=== PATIENT | female | born 1980 | race African-American/Black ===

== ENCOUNTER 2018-08-09 11:58 | Inpatient (IN) | payer OTHER ==
[~2018-08-09] VITALS: Ht 165.1 cm; Wt 81.6 kg
[2018-08-09 12:12] VITALS: BP 114/63
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
[2018-08-09] MEDS ORDERED: Solu-MEDROL 125mg Inj IVP ONE (12:30)
[2018-08-09] MEDS ORDERED: Isovue-300 100ml vial INJ PRN (12:30)
--- NOTE | 2018-08-09 12:40 | NUR ---
ED Nurse Note: Dr Garcia spoke to pt's nurse and found out there was misunderstanding. Pt's pcp told her she needs to be checked up at ER for mouth and throat sores. Labs were drown and pt will provide urine sample.
[2018-08-09 12:49] LABS: BASOPHILS % (AUTO) 0.3 % (0.0-2.0); EOSINOPHILS % (AUTO) 0.7 % (0.0-3.0); HEMATOCRIT 42.3 % (37.0-47.0); LYMPHOCYTES % (AUTO) 11.9 % (20.0-45.0); MEAN CORPUSCULAR VOLUME 85 FL (80-99); MONOCYTES % (AUTO) 5.9 % (1.0-10.0); NEUTROPHILS % (AUTO) 81.2 % (45.0-75.0); PLATELET COUNT 260 K/UL (150-450); RED BLOOD COUNT 4.95 M/UL (4.20-5.40); RED CELL DISTRIBUTION WIDTH 12.8 % (11.6-14.8)
[2018-08-09 13:01] LABS: ANION GAP 13 mmol/L (5-15); BLOOD UREA NITROGEN 16 mg/dL (7-18); CALCIUM 9.8 MG/DL (8.5-10.1); CARBON DIOXIDE 21 MMOL/L (21-32); CHLORIDE 99 MMOL/L (98-107); CREATININE 1.3 MG/DL (0.55-1.30); POTASSIUM 3.8 MMOL/L (3.5-5.1); SODIUM 133 MMOL/L (136-145)
[2018-08-09 13:08] LABS: APPEARANCE,URINE TURBID; BILIRUBIN, URINE 2+ (NEGATIVE); GLUCOSE, URINE (UA) NEGATIVE (NEGATIVE); KETONES,URINE 3+ (NEGATIVE); LEUKOCYTE ESTERASE ,URINE 3+ (NEGATIVE); NITRITE,URINE POSITIVE (NEGATIVE); PH,URINE 6.5 (4.5-8.0); PROTEIN,URINE 3+ (NEGATIVE); UROBILINOGEN,URINE 12 MG/DL (0.0-1.0)
[2018-08-09 13:22] LABS: COLOR,URINE YELLOW
[2018-08-09 13:26] LABS: ALANINE AMINOTRANSFERASE 2425 U/L (12-78); ALBUMIN/GLOBULIN RATIO 0.4 (1.0-2.7); ALKALINE PHOSPHATASE 158 U/L (46-116); BILIRUBIN,TOTAL 1.2 MG/DL (0.2-1.0)
[2018-08-09 13:30] VITALS: BP 124/70
[2018-08-09] MEDS ORDERED: Ketorolac 30mg Inj IV ONE (13:30)
[2018-08-09 13:36] LABS: ASPARTATE AMINO TRANSFERASE 2565 U/L (15-37); BILIRUBIN,DIRECT 0.7 MG/DL (0.0-0.3)
--- NOTE | 2018-08-09 14:30 | Emergency Room Report ---
History of Present Illness General Chief Complaint: Sore Throat Source: Patient (Ruben Garcia MD) Present Illness HPI 38-year-old female presents ED for evaluation. Patient referred by PMD. 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 Heart rate in triage 155. States that she's been having throat pain for the last 5 days. Unable to tolerate by mouth. Feeling weak. Denies fevers or chills. Denies any nausea or vomiting. Denies any abdominal pain. Denies any chest pain. No other aggravating relieving factors. Denies any other associated symptoms (Ruben Garcia MD) Allergies: Coded Allergies: CODEINE (Verified Allergy, Unknown, 08/09/18) Patient History Past Medical History: none Past Surgical History: none Pertinent Family History: none Social History: Denies: smoking, alcohol use, drug use Last Menstrual Period: hysterectomy 04/11 Now: No Immunizations: UTD Reviewed Nursing Documentation: PMH: Agreed; PSxH: Agreed (Ruben Garcia MD) Nursing Documentation-PMH Past Medical History: No Stated History (Ruben Garcia MD) Review of Systems All Other Systems: negative except mentioned in HPI (Rubne Garcia MD) Physical Exam Vital Signs Date Time Temp Pulse Resp B/P (MAP) Pulse Ox O2 Delivery O2 Flow Rate FiO2 08/09/18 12:08 98.2 155 22 91/62 98 Room Air Sp02 EP Interpretation: reviewed, normal General Appearance: no apparent distress, alert, GCS 15, non-toxic Head: normocephalic, atraumatic Eyes: bilateral eye normal inspection, bilateral eye PERRL ENT: hearing grossly normal, no angioedema, normal voice, TMs + canals normal, uvula midline, pharyngeal erythema, tonsillar exudate, other - swelling to hard palate Neck: full range of motion, supple, no meningismus, supple/symm/no masses Respiratory: chest non-tender, lungs clear, normal breath sounds, speaking full sentences Cardiovascular #1: regular rate, rhythm, no edema Cardiovascular #2: 2+ carotid (R), 2+ carotid (L), 2+ radial (R), 2+ radial (L) , 2+ dorsalis pedis (R), 2+ dorsalis pedis (L) Gastrointestinal: normal bowel sounds, non tender, soft, non-distended, no guarding, no rebound Rectal: deferred Genitourinary: normal inspection, no CVA tenderness Musculoskeletal: back normal, gait/station normal, normal range of motion, non- tender Neurologic: alert, oriented x3, responsive, motor strength/tone normal, sensory intact, speech normal Psychiatric: judgement/insight normal, memory normal, mood/affect normal, no suicidal/homicidal ideation Reflexes: 3+ bicep (R), 3+ bicep (L), 3+ tricep (R), 3+ tricep (L), 3+ knee (R) , 3+ knee (L) Skin: normal color, no rash, warm/dry, well hydrated Lymphatic: no adenopathy (Ruben Garcia MD) Medical Decision Making Diagnostic Impression: Primary Impression: UTI (urinary tract infection) Additional Impressions: Elevated LFTs Pharyngitis, acute Labs Test 08/09/18 12:30 08/09/18 13:00 White Blood Count 6.0 K/UL (4.8-10.8) Red Blood Count 4.95 M/UL (4.20-5.40) Hemoglobin 14.0 G/DL (12.0-16.0) Hematocrit 42.3 % (37.0-47.0) Mean Corpuscular Volume 85 FL (80-99) Mean Corpuscular Hemoglobin 28.2 PG (27.0-31.0) Mean Corpuscular Hemoglobin Concent 33.0 G/DL (32.0-36.0) Red Cell Distribution Width 12.8 % (11.6-14.8) Platelet Count 260 K/UL (150-450) Mean Platelet Volume 5.7 FL (6.5-10.1) Neutrophils (%) (Auto) 81.2 % (45.0-75.0) Lymphocytes (%) (Auto) 11.9 % (20.0-45.0) Monocytes (%) (Auto) 5.9 % (1.0-10.0) Eosinophils (%) (Auto) 0.7 % (0.0-3.0) Basophils (%) (Auto) 0.3 % (0.0-2.0) Sodium Level 133 MMOL/L (136-145) Potassium Level 3.8 MMOL/L (3.5-5.1) Chloride Level 99 MMOL/L (98-107) Carbon Dioxide Level 21 MMOL/L (21-32) Anion Gap 13 mmol/L (5-15) Blood Urea Nitrogen 16 mg/dL (7-18) Creatinine 1.3 MG/DL (0.55-1.30) Estimat Glomerular Filtration Rate 55.9 mL/min (>60) Glucose Level 91 MG/DL (74-106) Calcium Level 9.8 MG/DL (8.5-10.1) Total Bilirubin 1.2 MG/DL (0.2-1.0) Direct Bilirubin 0.7 MG/DL (0.0-0.3) Aspartate Amino Transf (AST/SGOT) 2565 U/L (15-37) Alanine Aminotransferase (ALT/SGPT) 2425 U/L (12-78) Alkaline Phosphatase 158 U/L (46-116) Total Protein 11.0 G/DL (6.4-8.2) Albumin 3.0 G/DL (3.4-5.0) Globulin 8.0 g/dL Albumin/Globulin Ratio 0.4 (1.0-2.7) Lipase 92 U/L (73-393) Human Chorionic Gonadotropin, Qual Negative (NEGATIVE) Urine Color Yellow Urine Appearance Turbid Urine pH 6.5 (4.5-8.0) Urine Specific [place] 1.015 (1.005-1.035) Urine Protein 3+ (NEGATIVE) Urine Glucose (UA) Negative (NEGATIVE) Urine Ketones 3+ (NEGATIVE) Urine Blood 2+ (NEGATIVE) Urine Nitrite Positive (NEGATIVE) Urine Bilirubin 2+ (NEGATIVE) Urine Ictotest Positive (NEGATIVE) Urine Urobilinogen 12 MG/DL (0.0-1.0) Urine Leukocyte Esterase 3+ (NEGATIVE) Urine RBC 5-10 /HPF (0 - 2) Urine WBC 10-15 /HPF (0 - 2) Urine Squamous Epithelial Cells Many /LPF (NONE/OCC) Urine Bacteria Many /HPF (NONE) Urine Hyaline Casts 0-2 /LPF (NONE) (Ruben Garcia MD) ER Course Please see above note. Discussed with Dr. Atwood who accepts the patient. Decision to admit here by insurance. Admit Dr. De La Cruz. (Morales Castellanos MD) EKG Diagnostic Results Rate: tachycardiac Rhythm: NSR ST Segments: no acute changes ASA given to the pt in ED: No (Ruben Garcia MD) Rhythm Strip Diag. Results EP Interpretation: yes Rhythm: NSR, no PVC's, no ectopy (Ruben Garcia MD) Chest X-Ray Diagnostic Results Chest X-Ray Diagnostic Results : Chest X-Ray Ordered: Yes # of Views/Limited/Complete: 1 View Indication: Other EP Interpretation: Yes Interpretation: no consolidation, no effusion, no pneumothorax, no acute cardiopulmonary disease Impression: No acute disease Electronically Signed by: Electronically signed by Ruben Garcia MD (Ruben Garcia MD) CT/MRI/US Diagnostic Results CT/MRI/US Diagnostic Results #1: Imaging Test Ordered: CT neck CT/MRI/US Diagnostic Results #2: Imaging Test Ordered: CT A/P (Ruben Garcia MD) Last Vital Signs Date Time Temp Pulse Resp B/P (MAP) Pulse Ox O2 Delivery O2 Flow Rate FiO2 08/09/18 12:12 98.2 120 22 114/63 98 Room Air Status: improved (Ruben Garcia MD) Status: improved (Morales Castellanos MD) Disposition: ADMITTED INPATIENT Condition: Serious Scripts No Active Prescriptions or Reported Meds Referrals: NON PHYSICIAN (PCP) Ruben Garcia MD Aug 09, 2018 14:30 Morales Castellanos MD Aug 09, 2018 15:58
--- NOTE | 2018-08-09 15:00 | Diagnostic Imaging Report ---
Indication: Abdominal pain Technique: Continuous helical transaxial imaging of the abdomen and pelvis was obtained from the lung bases to the pubic symphysis during intravenous contrast administration. Coronal 2-D reformats were also obtained. Study obtained in a Siemens sensation [address] Automatic Exposure Control was utilized. Total Dose length Product (DLP): 1559.[address] Dose Index Volume (CTDIvol): 19.51,15.23 mGy Comparison: None Findings: The lung bases are clear. The liver and spleen are enlarged. The liver measures 23 cm. The spleen measures approximately 14 cm. Gallbladder is contracted but unremarkable otherwise. The pancreas, kidneys and the adrenal glands are unremarkable. There is breathing motion which limits evaluation to some extent. There is no bowel obstruction identified. There is a small amount of free fluid within the pelvis. Uterus is retroverted. Query possibility of previous partial resection of the uterus given its diminutive size such as a supra cervical hysterectomy or partial myomectomy. Correlate clinically. IMPRESSION: Hepatosplenomegaly. Trace free fluid within the pelvis. Small uterus. Query possibility of previous partial uterine resection or supracervical hysterectomy. Correlate clinically The CT scanner at [facility] is accredited by the [employer] and the scans are performed using dose optimization techniques as appropriate to a performed exam including Automatic Exposure control.
--- NOTE | 2018-08-09 15:11 | Diagnostic Imaging Report ---
Indication: Odynophagia 5 days. Abdominal pain. Technique: Continuous helical imaging of the neck was obtained transaxially from the skull base to the upper thoracic spine during intravenous administration of nonionic contrast. 2-D coronal and sagittal reformatted images were obtained. Total Dose length Product (DLP): [address] Dose Index Volume (CTDIvol): 0.25, 0.15, 8.11, 48.67, 19.51, 15.23 mGy Comparison: None Findings: There is mild, generalized pharyngeal mucosal thickening present within the oral pharynx and nasopharynx especially the posterior wall of the nasopharynx on the left side more than the right. The findings could be on the basis of an upper respiratory infection. There is no abscess identified. The epiglottis is normal. The aryepiglottic folds are unremarkable. The larynx appears normal. The subglottic airway appear symmetric and clear. There are nodes within the neck bilaterally measuring in the upwards of 1.5 cm. These are likely inflammatory in nature. Cervical spine is unremarkable. The major vessels in the neck enhance normally. The submandibular/sublingual regions, the parotid glands, skull base, thyroid gland, appear normal. The paranasal sinuses are moderately opacified consistent with sinusitis. IMPRESSION: Pharyngeal mucosal thickening involving the nasopharynx and oropharynx particularly on the left side. Findings are probably inflammatory in nature and may be related to a upper respiratory infection. Please correlate clinically. Nonspecific nodes present within the neck bilaterally. Favor inflammatory/infectious etiology. Sinusitis Follow-up and clinical correlation recommended. The CT scanner at [facility] is accredited by the [employer] and the scans are performed using dose optimization techniques as appropriate to a performed exam including Automatic Exposure control.
--- NOTE | 2018-08-09 15:20 | Diagnostic Imaging Report ---
Indication: Chest pain Comparison: None A single view chest radiograph was obtained. Findings: Cardiomediastinal appearance is within normal limits for age. The lungs are clear. Pulmonary vascularity is appropriate. The diaphragmatic contour is smooth and costophrenic angles are sharp. No pleural effusions are identified. The bones are unremarkable. Impression: No acute findings
[2018-08-09] MEDS ORDERED: cefTRIAXone 1 GM in NS 55 ML IVPB ONE (15:30)
--- NOTE | 2018-08-09 16:47 | NUR ---
ED Nurse Note: Report given to KATY Sears in 3E based on SBAR information. Pt stable and aware of transfer. Room is ready. Pt will be transferred.
--- NOTE | 2018-08-09 16:49 | NUR ---
ED Nurse Note: waiting for Dr Castellanos to talk to admitting doctor Caprice.
[2018-08-09 17:30] VITALS: BP 121/79
--- NOTE | 2018-08-09 17:30 | NUR ---
ED Nurse Note: Pt was cleared to be transferred by ERMD. Pt stable, finished IV fluid and IV ATB prior to transfer. [place] list was filled out by Kevin Weir RN and was reported to KATY Sears in 3E.
--- NOTE | 2018-08-09 18:19 | NUR ---
NURSE NOTES: Patient received from the ED in stable condition. Alert and oriented with unlabored breathing. IV site patent and intact on left AC. Belongings reviewed and confirmed with the patient. Patient oriented to her new room, call light placed by bedside. Will continue to monitor.
[2018-08-09] MEDS ORDERED: Ketorolac 30mg Inj IV SCH (19:00)
[2018-08-09] MEDS ORDERED: Dexamethasone 4mg/ml vial IVP ONE (19:00)
--- NOTE | 2018-08-09 19:37 | NUR ---
HAND-OFF: Report given to Gregorio BURNS.
--- NOTE | 2018-08-09 19:37 | Infectious Diseases Prog Note ---
Assessment/Plan Problems: (1) Pharyngitis, acute Assessment & Plan: rule out infectious etiology , will order influenza screening, CMV , monospot , mycoplasma and chlamydia , and will start unasyn empiric coverage . will place in droplets isolation (2) UTI (urinary tract infection) Assessment & Plan: will start unasyn pending urine culture (3) Hepatitis Assessment & Plan: rule out acute hepatitis VS other infectious etiology. monitor LFT , recommend GI eval (4) Oral thrush Assessment & Plan: will start nystatin and order HIV test Subjective Allergies: Coded Allergies: CODEINE (Verified Allergy, Unknown, 08/09/18) Objective Vital Signs Last 24 Hour Vital Signs Date Time Temp Pulse Resp B/P (MAP) Pulse Ox O2 Delivery O2 Flow Rate FiO2 08/09/18 17:50 Room Air 08/09/18 17:30 98.5 94 19 121/79 99 Room Air 08/09/18 17:30 98.5 94 19 121/79 99 Room Air 08/09/18 13:30 98.1 97 21 124/70 98 Room Air 08/09/18 12:12 98.2 120 22 114/63 98 Room Air 08/09/18 12:08 98.2 155 22 91/62 98 Room Air Height (Feet): 5 Height (Inches): 7.00 Weight (Pounds): 180 Laboratory Tests Test 08/09/18 12:30 08/09/18 13:00 White Blood Count 6.0 K/UL (4.8-10.8) Red Blood Count 4.95 M/UL (4.20-5.40) Hemoglobin 14.0 G/DL (12.0-16.0) Hematocrit 42.3 % (37.0-47.0) Mean Corpuscular Volume 85 FL (80-99) Mean Corpuscular Hemoglobin 28.2 PG (27.0-31.0) Mean Corpuscular Hemoglobin Concent 33.0 G/DL (32.0-36.0) Red Cell Distribution Width 12.8 % (11.6-14.8) Platelet Count 260 K/UL (150-450) Mean Platelet Volume 5.7 FL (6.5-10.1) L Neutrophils (%) (Auto) 81.2 % (45.0-75.0) H Lymphocytes (%) (Auto) 11.9 % (20.0-45.0) L Monocytes (%) (Auto) 5.9 % (1.0-10.0) Eosinophils (%) (Auto) 0.7 % (0.0-3.0) Basophils (%) (Auto) 0.3 % (0.0-2.0) Sodium Level 133 MMOL/L (136-145) L Potassium Level 3.8 MMOL/L (3.5-5.1) Chloride Level 99 MMOL/L (98-107) Carbon Dioxide Level 21 MMOL/L (21-32) Anion Gap 13 mmol/L (5-15) Blood Urea Nitrogen 16 mg/dL (7-18) Creatinine 1.3 MG/DL (0.55-1.30) Estimat Glomerular Filtration Rate 55.9 mL/min (>60) Glucose Level 91 MG/DL (74-106) Calcium Level 9.8 MG/DL (8.5-10.1) Total Bilirubin 1.2 MG/DL (0.2-1.0) H Direct Bilirubin 0.7 MG/DL (0.0-0.3) H Aspartate Amino Transf (AST/SGOT) 2565 U/L (15-37) H Alanine Aminotransferase (ALT/SGPT) 2425 U/L (12-78) H Alkaline Phosphatase 158 U/L (46-116) H Total Protein 11.0 G/DL (6.4-8.2) H Albumin 3.0 G/DL (3.4-5.0) L Globulin 8.0 g/dL Albumin/Globulin Ratio 0.4 (1.0-2.7) L Lipase 92 U/L (73-393) Human Chorionic Gonadotropin, Qual Negative (NEGATIVE) Urine Color Yellow Urine Appearance Turbid Urine pH 6.5 (4.5-8.0) Urine Specific [place] 1.015 (1.005-1.035) Urine Protein 3+ (NEGATIVE) H Urine Glucose (UA) Negative (NEGATIVE) Urine Ketones 3+ (NEGATIVE) H Urine Blood 2+ (NEGATIVE) H Urine Nitrite Positive (NEGATIVE) H Urine Bilirubin 2+ (NEGATIVE) H Urine Ictotest Positive (NEGATIVE) Urine Urobilinogen 12 MG/DL (0.0-1.0) H Urine Leukocyte Esterase 3+ (NEGATIVE) H Urine RBC 5-10 /HPF (0 - 2) H Urine WBC 10-15 /HPF (0 - 2) H Urine Squamous Epithelial Cells Many /LPF (NONE/OCC) H Urine Bacteria Many /HPF (NONE) H Urine Hyaline Casts 0-2 /LPF (NONE) H Current Medications Medications (Trade) Dose Ordered Sig/Tanvi Route PRN Reason Start Time Stop Time Status Last Admin Dose Admin Acetaminophen (Tylenol) 650 mg Q4H PRN ORAL Mild Pain/Temp > 100.5 08/09/18 19:00 09/08/18 18:59 Ampicillin Sodium/ Sulbactam Sodium 3 gm/Sodium Chloride 110 ml @ 220 mls/hr Q6H IVPB 08/09/18 20:00 08/16/18 19:59 Dexamethasone Sodium Phosphate (Decadron 4mg/ml vial) 2 mg ONCE ONCE IM 08/10/18 09:00 08/10/18 09:01 Iopamidol (Isovue-300 100ml) 100 ml NOW PRN INJ Radiology Procedure 08/09/18 12:30 08/11/18 12:20 Ketorolac Tromethamine (Toradol 30mg) 30 mg Q6H IV 08/09/18 19:00 08/14/18 18:59 UNV Ketorolac Tromethamine (Toradol 30mg) 30 mg Q6H PRN IV Severe Pain (Pain Scale 7-10) 08/09/18 19:15 08/14/18 19:14 UNV Nystatin (Nystatin) 5 ml THREE TIMES A DAY ORAL 08/10/18 09:00 08/17/18 08:59 UNV Pantoprazole (Protonix) 40 mg DAILY ORAL 08/10/18 09:00 09/09/18 08:59 Carlitos Suarez M.D. Aug 09, 2018 19:37
--- NOTE | 2018-08-09 19:40 | NUR ---
NURSE NOTES: Received report from Renu BURNS. Pt A&O x4, laying in bed. No signs of pain or distress. IV site LAC dry & intact. Call light in reach, bed in lowest position, side rails up x2. Will continue to monitor.
[2018-08-09 20:00] VITALS: BP 114/72
[2018-08-09] MEDS: Ampicillin/Sulbactam Sod 3 GM in NS 110 ML IVPB SCH (20:41)
--- NOTE | 2018-08-09 21:00 | Consultation ---
DATE OF CONSULTATION: 08/09/2018 INFECTIOUS DISEASE CONSULTATION CONSULTING PHYSICIAN: Carlitos Suarez M.D. REQUESTING PHYSICIAN: Ascencion De La Cruz M.D. REASON FOR CONSULTATION: Acute pharyngitis, hepatitis, and UTI. Recommendation for antibiotics treatment and further management. HISTORY OF PRESENT ILLNESS: The patient is a 38-year-old female with no significant past medical history, who presented to the emergency room after she was sent by her primary physician for concern of cancer in her mouth. The patient had sore throat for almost 5 days. She also had heart rate in the range of 155. The patient has been feeling sick and weak, unable to tolerate anything by her mouth with dysphagia. Denied any other associated symptoms such as nausea, vomiting, abdominal pain, diarrhea, or chest pain. She denied any recent travel or sick contact. She never had symptoms like this before. The patient had CT scan of neck which showed pharyngeal mucosal thickening involving the nasopharynx and oropharynx, particularly on the left side, concerning for infectious etiology, so Infectious Disease consultation was requested for antibiotics treatment and further management. REVIEW OF SYSTEMS: A 14-point of system reviewed were all negative apart from the one I mentioned above in my H and P. PAST MEDICAL HISTORY: Negative. PAST SURGICAL HISTORY: Negative. FAMILY HISTORY: Not contributory. SOCIAL HISTORY: The patient has been smoking 1 packet per day since age of 15. She uses alcohol occasionally and drugs sometimes. She is unemployed and lives with boyfriend at this moment. ALLERGIES: She is allergic to codeine. MEDICATIONS: She received ceftriaxone, clindamycin, and methylprednisolone in the emergency room. For the rest of her medications, please refer to MAR. PHYSICAL EXAMINATION: VITAL SIGNS: Temperature 98.5, pulse 94, respiration 19, blood pressure 121/79, saturation 99% on room air. GENERAL: A young female, up in bed, awake, alert, oriented x3, not in acute distress, coughing. HEENT: Normocephalic and atraumatic. Pupils reactive to light equally. Pale sclerae. Moist oral mucosa with thrush covering her tongue and 2 ulcerated lesions on her tongue with small growth arising from both mildly enlarged tonsils on both sides. Unable to assess tonsils well. NECK: Supple with submandibular lymphadenopathy. CARDIOVASCULAR: Regular rate and rhythm. No murmur or gallop. LUNGS: Clear bilaterally. No wheezing. No rhonchi. Normal breathing effort. ABDOMEN: Soft, nontender, and nondistended. Normal bowel sounds. No hepatosplenomegaly or ascites. EXTREMITIES: No edema or cyanosis. LABORATORY DATA: Laboratories showed white count of 6000, hemoglobin of 14, platelet count of 260,000. BUN of 16, creatinine of 1.3. AST of 2565, ALT of 2425, with alkaline phosphatase of 158. IMAGIN. Neck CT showed pharyngeal mucosal thickening involving the nasopharynx and oropharynx, particularly on the left side, concerning for infectious process. 2. Chest x-ray showed no acute finding. 3. CT scan of abdomen and pelvis with contrast showed hepatosplenomegaly, trace free fluid within the pelvis, small uterus, previous partial uterine resection. ASSESSMENT AND RECOMMENDATION: 1. Acute pharyngitis, rule out infectious etiology. We will order influenza screening, CMV, monospot, Mycoplasma, and Chlamydia, and we will start Unasyn empiric coverage. We will place the patient on droplet isolation for now. 2. UTI. We will start Unasyn pending urine culture. 3. Hepatitis, rule out infectious etiology such as hepatitis A, B, or C or other infectious etiology which I mentioned earlier such as CMV or Monospot. We will screen for viral hepatitis . Continue to monitor liver function tests. Recommend GI evaluation. 4. Oral thrush concerning for HIV. We will order HIV test. I will start the patient on nystatin orally. 5. Tongue lesions, rule out malignant process. Recommend biopsy and followup with oral surgical instruments inspector. Thank you for the consult. ID will continue to follow. Carlitos Suarez M.D. DR: Anna JOB#: [id number] CC: AN
[2018-08-09] MEDS: Ketorolac 30mg Inj IV PRN (21:05)
[2018-08-09 21:16] LABS: HEMATOCRIT 31.5 % (37.0-47.0); HEMOGLOBIN 10.6 G/DL (12.0-16.0); MEAN CORPUSCULAR VOLUME 86 FL (80-99); PLATELET COUNT 213 K/UL (150-450); RED BLOOD COUNT 3.66 M/UL (4.20-5.40); RED CELL DISTRIBUTION WIDTH 12.6 % (11.6-14.8); WHITE BLOOD COUNT 7.7 K/UL (4.8-10.8)
--- NOTE | 2018-08-09 21:30 | NUR ---
NURSE NOTES: Pt transferred to d/t droplet isolation. Report given to Kaye BURNS. Belongings list signed. Pt in stable condition.
--- NOTE | 2018-08-09 21:40 | NUR ---
NURSE NOTES: Patient in bed, AOX4, IV in place. No s/s distress noted. Reviewed patient belongings within 3e nurse. Bed in lowest position, call light within reach. Will continue to monitor.
[2018-08-10 00:28] VITALS: BP 113/76
[2018-08-10] MEDS: Ampicillin/Sulbactam Sod 3 GM in NS 110 ML IVPB SCH ×4 (01:36→20:40)
[2018-08-10 04:00] VITALS: BP 119/75
--- NOTE | 2018-08-10 06:02 | NUR ---
NURSE NOTES: Patient in bed, asleep, no distress.
[2018-08-10] MEDS: Ketorolac 30mg Inj IV PRN ×3 (06:33→18:47)
--- NOTE | 2018-08-10 07:30 | NUR ---
HAND-OFF: Report given to YAN SYLVESTER RN.
--- NOTE | 2018-08-10 07:37 | NUR ---
NURSE NOTES: patient is awake and alert ,sitting up in bed and eating breakfast,patient state no complaint at this time.Call light within reach.
[2018-08-10 08:15] LABS: BASOPHILS % (AUTO) 0.3 % (0.0-2.0); HEMATOCRIT 32.7 % (37.0-47.0); HEMOGLOBIN 10.9 G/DL (12.0-16.0); LYMPHOCYTES % (AUTO) 8.2 % (20.0-45.0); MEAN CORPUSCULAR VOLUME 86 FL (80-99); MONOCYTES % (AUTO) 6.9 % (1.0-10.0); NEUTROPHILS % (AUTO) 84.6 % (45.0-75.0); PLATELET COUNT 223 K/UL (150-450); RED BLOOD COUNT 3.78 M/UL (4.20-5.40); WHITE BLOOD COUNT 7.9 K/UL (4.8-10.8)
[2018-08-10] MEDS: Nystatin Susp 500,000 units/5ml ORAL SCH ×3 (08:19→18:37)
[2018-08-10 08:46] VITALS: BP 116/74
[2018-08-10 08:46] LABS: ALANINE AMINOTRANSFERASE 3063 U/L (12-78); ALBUMIN 2.3 G/DL (3.4-5.0); ALBUMIN/GLOBULIN RATIO 0.3 (1.0-2.7); ALKALINE PHOSPHATASE 128 U/L (46-116); ANION GAP 9 mmol/L (5-15); ASPARTATE AMINO TRANSFERASE 2147 U/L (15-37); BILIRUBIN,TOTAL 0.7 MG/DL (0.2-1.0); BLOOD UREA NITROGEN 11 mg/dL (7-18); CALCIUM 8.7 MG/DL (8.5-10.1); CARBON DIOXIDE 23 MMOL/L (21-32); CHLORIDE 105 MMOL/L (98-107); CREATININE 0.9 MG/DL (0.55-1.30); POTASSIUM 4.4 MMOL/L (3.5-5.1); SODIUM 137 MMOL/L (136-145)
[2018-08-10] MEDS ORDERED: Nystatin Susp 500,000 units/5ml ORAL SCH (09:00)
[2018-08-10] MEDS ORDERED: Dexamethasone 4mg/ml vial IM ONE (09:00)
--- NOTE | 2018-08-10 10:25 | NUR ---
ST NOTE: BEDSIDE SWALLOW EVAL RECEIVED BEDSIDE SWALLOW EVAL ORDER CHART REVIEWED PRIOR THE EVALUATION PT IS A 38-YEAR-OLD FEMALE WHO WAS ADMITTED DUE TO UTI AND PHARYNGITIS. DYSPHAGIA RISK FACTORS: PER PT, PAINFUL SWALLOWING(ODYNOPHAGIA) FOR THE LAST 5 DAYS, ORAL THRUST, QUESTIONABLE TONGUE LESIONS, PHARYNGITIS, ACUTE, H/O SMOKING 1 PACK PER DAY LAST 14 YRS. PER CXR: NO ACUTE PROCESS PLOF: PT RESIDES AT HOME WITH BOYFRIEND. PT IS FULL CODE. CURRENT STATUS: PT SEEN AT BEDSIDE IN AM. ALERT, COOPERATIVE, FOLLOWS DIRECTIONS, VERBAL, ORIENT X 4. PER PT, WHEN SWALLOW THE COLD WATER AND PUDDING, HER THROAT HURT, AND SOME MOUTH AND TONGUE LESIONS WERE NOTED BUT IT SEEMS REDUCED AFTER RECEIVING ANTIBIOTIC. GIVEN PO TRIALS: THIN(CUP-SELF) AND PUDDING(TSP), PT REFUSED MASTICATED SOLID AT THIS TIME(VERY PAINFUL TO SWALLOW). INITIAL IMPRESSION: ORAL THRUST WAS NOTED. GROSSLY FUNCTION LABIAL AND LINGUAL MOVEMENT AND STRENGTH GOOD ORAL TRANSIT TIME AND OROPHARYNGEAL TRANSIT TIME, GOOD LARYNGEAL ELEVATION, NO OVERT S/S OF ASPIRATION. OVERALL, PT'S SWALLOWING IS FUNCTIONAL. HOWEVER, PT REPORTED THAT SHE STILL HAS THE PAIN DURING SWALLOWING. RECOMMENDATIONS: 1. CONTINUE CURRENT DIET(FULL LIQUID) 2. UPGRADE DIET TOLERATED. 3. GENERAL ASPIRATION PRECAUTIONS 4. SKILLED ST SERVICE TO FOLLOW UP FOR 1-2XWK D/W PT AND RNYAN.
[2018-08-10 12:00] VITALS: BP 128/77
--- NOTE | 2018-08-10 13:26 | GI Initial Consult Note ---
History of Present Illness General Date patient seen: Aug 10, 2018 Time patient seen: 13:20 Reason for Hospitalization: Sore Throat Referring physician: CHARLES HORVATH Reason for Consultation: Odynophagia / dysphagia Present Illness HPI 38-year-old female presents ED for evaluation. Patient referred by PMD. 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 Heart rate in triage 155. States that she's been having throat pain for the last 5 days. Unable to tolerate by mouth. Feeling weak. Denies fevers or chills. Denies any nausea or vomiting. Denies any abdominal pain. Denies any chest pain. No other aggravating relieving factors. Denies any other associated symptoms GI consulted for odynophagia versus dysphagia. Patient seen, awake alert and oriented x4 in no apparent distress, ambulatory, no active signs and symptoms of nausea vomiting. According to the patient, she has painful swallowing even on pure liquid diet. Patient was assessed by speech therapist with no noted dysphagia. Oral thrush noted. No history of endoscopic or colonoscopy. Labs reviewed, patient presents with normocytic anemia, severe transaminitis with mild hyperbilirubinemia. Home Meds No Active Prescriptions or Reported Meds Allergies: Coded Allergies: CODEINE (Verified Allergy, Unknown, 08/09/18) Patient History History Provided By: Patient, Medical Record [facility] Narrative Past Medical History: none Past Surgical History: none Pertinent Family History: none Social History: Denies: smoking, alcohol use, drug use Last Menstrual Period: hysterectomy 04/11 Now: No Immunizations: UTD Reviewed Nursing Documentation: PMH: Agreed; PSxH: Agreed Nursing Documentation-PM Past Medical History: No Stated History Review of Systems All Other Systems: negative except mentioned in HPI Physical Exam Vital Signs Date Time Temp Pulse Resp B/P (MAP) Pulse Ox O2 Delivery O2 Flow Rate FiO2 08/09/18 12:08 98.2 155 22 91/62 98 Room Air Sp02 EP Interpretation: reviewed, normal Labs Laboratory Tests Test 08/09/18 20:00 08/10/18 06:38 White Blood Count 7.7 K/UL (4.8-10.8) 7.9 K/UL (4.8-10.8) Red Blood Count 3.66 M/UL (4.20-5.40) L 3.78 M/UL (4.20-5.40) L Hemoglobin 10.6 G/DL (12.0-16.0) L 10.9 G/DL (12.0-16.0) L Hematocrit 31.5 % (37.0-47.0) L 32.7 % (37.0-47.0) L Mean Corpuscular Volume 86 FL (80-99) 86 FL (80-99) Mean Corpuscular Hemoglobin 28.9 PG (27.0-31.0) 28.8 PG (27.0-31.0) Mean Corpuscular Hemoglobin Concent 33.6 G/DL (32.0-36.0) 33.4 G/DL (32.0-36.0) Red Cell Distribution Width 12.6 % (11.6-14.8) 13.0 % (11.6-14.8) Platelet Count 213 K/UL (150-450) 223 K/UL (150-450) Mean Platelet Volume 5.2 FL (6.5-10.1) L 5.3 FL (6.5-10.1) L Neutrophils (%) (Auto) % (45.0-75.0) 84.6 % (45.0-75.0) H Lymphocytes (%) (Auto) % (20.0-45.0) 8.2 % (20.0-45.0) L Monocytes (%) (Auto) % (1.0-10.0) 6.9 % (1.0-10.0) Eosinophils (%) (Auto) % (0.0-3.0) 0.0 % (0.0-3.0) Basophils (%) (Auto) % (0.0-2.0) 0.3 % (0.0-2.0) Differential Total Cells Counted 100 Neutrophils % (Manual) 87 % (45-75) H Lymphocytes % (Manual) 9 % (20-45) L Monocytes % (Manual) 3 % (1-10) Eosinophils % (Manual) 0 % (0-3) Basophils % (Manual) 0 % (0-2) Band Neutrophils 1 % (0-8) Platelet Estimate Adequate Platelet Morphology Normal Hypochromasia 1+ Anisocytosis 1+ Chlamydia Specimen Information Pending Chlamydia pneumoniae IgM Antibody Pending Chlamydia trachomatis IgM Ab Titer Pending Chlamydia psittaci IgM Ab Titer Pending Hepatitis A IgM Antibody Pending Hepatitis B Surface Antigen Pending Hepatitis B Core IgM Antibody Pending Hepatitis C Antibody Pending Monoscreen Pending HIV (1&2) Antibody Rapid Negative (NEGATIVE) Mycoplasma pneumoniae IgM Ab Titer Pending Sodium Level 137 MMOL/L (136-145) Potassium Level 4.4 MMOL/L (3.5-5.1) Chloride Level 105 MMOL/L (98-107) Carbon Dioxide Level 23 MMOL/L (21-32) Anion Gap 9 mmol/L (5-15) Blood Urea Nitrogen 11 mg/dL (7-18) Creatinine 0.9 MG/DL (0.55-1.30) Estimat Glomerular Filtration Rate > 60 mL/min (>60) Glucose Level 112 MG/DL (74-106) H Calcium Level 8.7 MG/DL (8.5-10.1) Total Bilirubin 0.7 MG/DL (0.2-1.0) Aspartate Amino Transf (AST/SGOT) 2147 U/L (15-37) H Alanine Aminotransferase (ALT/SGPT) 3063 U/L (12-78) H Alkaline Phosphatase 128 U/L (46-116) H Total Protein 9.0 G/DL (6.4-8.2) H Albumin 2.3 G/DL (3.4-5.0) L Globulin 6.7 g/dL Albumin/Globulin Ratio 0.3 (1.0-2.7) L Cytomegalovirus DNA Qual (PCR) Pending General Appearance: well appearing, no apparent distress, alert Head: normocephalic EENT: PERRL/EOMI, normal ENT inspection Neck: supple Respiratory: normal breath sounds, no respiratory distress Cardiovascular: normal rate Gastrointestinal: normal inspection, non tender, soft, normal bowel sounds, non -distended Rectal: deferred Genitourinary: no CVA tenderness Musculoskeletal: normal inspection, back normal Neurologic: normal inspection, alert, oriented x3, responsive Psychiatric: normal inspection, judgement/insight normal, memory normal Skin: normal inspection, normal color, no rash, warm/dry, palpation normal, well hydrated Lymphatic: normal inspection, no adenopathy Current Medications Current Medications Medications (Trade) Dose Ordered Sig/Tanvi Route PRN Reason Start Time Stop Time Status Last Admin Dose Admin Acetaminophen (Tylenol) 650 mg Q4H PRN ORAL Mild Pain/Temp > 100.5 08/09/18 19:00 09/08/18 18:59 Ampicillin Sodium/ Sulbactam Sodium 3 gm/Sodium Chloride 110 ml @ 220 mls/hr Q6H IVPB 08/09/18 20:00 08/16/18 19:59 08/10/18 08:18 Iopamidol (Isovue-300 100ml) 100 ml NOW PRN INJ Radiology Procedure 08/09/18 12:30 08/11/18 12:20 Ketorolac Tromethamine (Toradol 30mg) 30 mg Q6H PRN IV Severe Pain (Pain Scale 7-10) 08/09/18 19:15 08/14/18 19:14 08/10/18 12:46 Nystatin (Nystatin) 5 ml THREE TIMES A DAY ORAL 08/10/18 09:00 08/17/18 08:59 08/10/18 12:46 Pantoprazole (Protonix) 40 mg DAILY ORAL 08/10/18 09:00 09/09/18 08:59 08/10/18 08:29 GI: Plan Problems: (1) Esophageal candidiasis (2) Transaminitis (3) Oral thrush (4) Hepatitis Plan EGD scheduled tomorrow to evaluate odynophagia. Okay to advance diet now, n.p.o. at midnight Hold all blood thinners Abdominal ultrasound ordered anemia work up OB stool r/o GI bleed monitor H&H, prn transfusions bowel regime ppi fu labs, hepatitis panel, utox Discussed with Dr. Delgado. Thank you for this patient referral, we will follow. The patient was seen and examined at bedside and all new and available data was reviewed in the patients chart. I agree with the above findings, impression and plan. (Patient seen earlier today. Signature stamp does not reflect patient encounter time.). - MD Siri Mckoy,[facility] [employer] Aug 10, 2018 13:26
--- NOTE | 2018-08-10 14:15 | History & Physical ---
History and Physical History & Physicial patient is seen and examined. Full Dictation completed Ascencion De La Cruz MD Aug 10, 2018 14:15
--- NOTE | 2018-08-10 14:16 | General Progress Note ---
Assessment/Plan Assessment/Plan S: My throat hurts O: appears comfortable. Tolerating solid diet. HYSICAL EXAMINATION: HEAD AND NECK: Atraumatic and normocephalic. CHEST: Clear to auscultation. ABDOMEN: Soft. No organomegaly. MUSCULOSKELETAL: No gross focal motor deficit. NEUROLOGIC: Awake, alert, and oriented x3. Meds: reviewed and reconciled, including Unasyn ASSESSMENT: 1. Acute dysphagia. 2. Hepatitis - age indeterminate. 3. GI and DVT prophylaxes. Plan: One dose of Dexa Pending lab test for hepatitis and HIV Subjective Allergies: Coded Allergies: CODEINE (Verified Allergy, Unknown, 08/09/18) Objective Last 24 Hour Vital Signs Date Time Temp Pulse Resp B/P (MAP) Pulse Ox O2 Delivery O2 Flow Rate FiO2 08/10/18 12:00 98.7 95 18 128/77 (94) 93 08/10/18 09:00 Room Air 08/10/18 08:46 97.5 79 18 116/74 (88) 97 08/10/18 07:03 98.6 08/10/18 04:00 98.6 76 18 119/75 (90) 93 08/10/18 00:28 97.4 78 18 113/76 (88) 100 08/09/18 22:57 Room Air 08/09/18 20:00 98.1 91 18 114/72 (86) 96 08/09/18 17:50 Room Air 08/09/18 17:30 98.5 94 19 121/79 99 Room Air 08/09/18 17:30 98.5 94 19 121/79 99 Room Air Intake and Output 08/09/18 08/10/18 19:00 07:00 Intake Total 0 ml 350 ml Balance 0 ml 350 ml Intake Oral 0 ml 240 ml IV Total 110 ml # Voids 2 2 Laboratory Tests 08/09/18 20:00: White Blood Count 7.7, Red Blood Count 3.66L, Hemoglobin 10.6L, Hematocrit 31.5L , Mean Corpuscular Volume 86, Mean Corpuscular Hemoglobin 28.9, Mean Corpuscular Hemoglobin Concent 33.6, Red Cell Distribution Width 12.6, Platelet Count 213, Mean Platelet Volume 5.2L, Neutrophils (%) (Auto) , Lymphocytes (%) ( Auto) , Monocytes (%) (Auto) , Eosinophils (%) (Auto) , Basophils (%) (Auto) , Differential Total Cells Counted 100, Neutrophils % (Manual) 87H, Lymphocytes % (Manual) 9L, Monocytes % (Manual) 3, Eosinophils % (Manual) 0, Basophils % ( Manual) 0, Band Neutrophils 1, Platelet Estimate Adequate, Platelet Morphology Normal, Hypochromasia 1+, Anisocytosis 1+, Chlamydia Specimen Information [ Pending], Chlamydia pneumoniae IgM Antibody [Pending], Chlamydia trachomatis IgM Ab Titer [Pending], Chlamydia psittaci IgM Ab Titer [Pending], Hepatitis A IgM Antibody [Pending], Hepatitis B Surface Antigen [Pending], Hepatitis B Core IgM Antibody [Pending], Hepatitis C Antibody [Pending], Monoscreen [Pending], HIV (1&2) Antibody Rapid Negative, Mycoplasma pneumoniae IgM Ab Titer [Pending] 08/10/18 06:38: White Blood Count 7.9, Red Blood Count 3.78L, Hemoglobin 10.9L, Hematocrit 32.7L , Mean Corpuscular Volume 86, Mean Corpuscular Hemoglobin 28.8, Mean Corpuscular Hemoglobin Concent 33.4, Red Cell Distribution Width 13.0, Platelet Count 223, Mean Platelet Volume 5.3L, Neutrophils (%) (Auto) 84.6H, Lymphocytes (%) (Auto) 8.2L, Monocytes (%) (Auto) 6.9, Eosinophils (%) (Auto) 0.0, Basophils (%) (Auto) 0.3, Sodium Level 137, Potassium Level 4.4, Chloride Level 105, Carbon Dioxide Level 23, Anion Gap 9, Blood Urea Nitrogen 11, Creatinine 0.9, Estimat Glomerular Filtration Rate > 60, Glucose Level 112H, Calcium Level 8.7, Total Bilirubin 0.7, Aspartate Amino Transf (AST/SGOT) 2147H, Alanine Aminotransferase (ALT/SGPT) 3063H, Alkaline Phosphatase 128H, Total Protein 9.0H , Albumin 2.3L, Globulin 6.7, Albumin/Globulin Ratio 0.3L, Cytomegalovirus DNA Qual (PCR) [Pending] Height (Feet): 5 Height (Inches): 7.00 Weight (Pounds): 180 Ascencion De La Cruz MD Aug 10, 2018 14:16
--- NOTE | 2018-08-10 14:40 | Infectious Diseases Prog Note ---
Assessment/Plan Problems: (1) Pharyngitis, acute Assessment & Plan: rule out infectious etiology , influenza screening is negative . await CMV , monospot , mycoplasma and chlamydia , and continue unasyn empiric coverage . keep in droplets isolation for now (2) UTI (urinary tract infection) Assessment & Plan: continue unasyn pending urine culture (3) Hepatitis Assessment & Plan: rule out acute hepatitis VS other infectious etiology. await hepatitis panels , and monitor LFT , recommend GI eval (4) Oral thrush Assessment & Plan: will start nystatin and order HIV test Subjective Constitutional: Reports: fatigue HEENT: Reports: dysphagia, congestion, other - sore throat Respiratory: Reports: no symptoms Breasts: Reports: no symptoms Cardiovascular: Reports: no symptoms Gastrointestinal/Abdominal: Reports: no symptoms Genitourinary: Reports: no symptoms Neurologic: Reports: no symptoms Psychiatric: Reports: no symptoms Skin: Reports: no symptoms Endocrine: Reports: no symptoms Hematologic: Reports: no symptoms Musculoskeletal: Reports: no symptoms Allergies: Coded Allergies: CODEINE (Verified Allergy, Unknown, 08/09/18) Objective Vital Signs Last 24 Hour Vital Signs Date Time Temp Pulse Resp B/P (MAP) Pulse Ox O2 Delivery O2 Flow Rate FiO2 08/10/18 12:00 98.7 95 18 128/77 (94) 93 08/10/18 09:00 Room Air 08/10/18 08:46 97.5 79 18 116/74 (88) 97 08/10/18 07:03 98.6 08/10/18 04:00 98.6 76 18 119/75 (90) 93 08/10/18 00:28 97.4 78 18 113/76 (88) 100 08/09/18 22:57 Room Air 08/09/18 20:00 98.1 91 18 114/72 (86) 96 08/09/18 17:50 Room Air 08/09/18 17:30 98.5 94 19 121/79 99 Room Air 08/09/18 17:30 98.5 94 19 121/79 99 Room Air Height (Feet): 5 Height (Inches): 7.00 Weight (Pounds): 180 General Appearance: WD/WN, no acute distress HEENT: normocephalic, atraumatic, anicteric, mucous membranes moist, PERRL, EOMI, pharynx normal, supple, no JVD, thrush, tonsils swollen, other - tounge ulcerated lesions with small growth Respiratory/Chest: chest wall non-tender, lungs clear, normal breath sounds, no respiratory distress, no accessory muscle use Cardiovascular: normal peripheral pulses, normal rate, regular rhythm, no gallop/murmur, no JVD Abdomen: normal bowel sounds, soft, non tender, no organomegaly, non distended , no mass, no scars Extremities: no cyanosis, no clubbing Skin: no rash, no lesions Neurologic/Psychiatric: alert, oriented x 3, responsive Lymphatic: no neck adenopathy, no groin adenopathy Musculoskeletal: normal muscle bulk, no effusion Microbiology Date/Time Source Procedure Growth Status 08/09/18 22:15 Nose Influenza Types A,B Antigen (LEEANN) - Final Complete 08/09/18 13:00 Urine,Clean Catch Urine Culture - Preliminary Resulted Laboratory Tests Test 08/09/18 20:00 08/10/18 06:38 White Blood Count 7.7 K/UL (4.8-10.8) 7.9 K/UL (4.8-10.8) Red Blood Count 3.66 M/UL (4.20-5.40) L 3.78 M/UL (4.20-5.40) L Hemoglobin 10.6 G/DL (12.0-16.0) L 10.9 G/DL (12.0-16.0) L Hematocrit 31.5 % (37.0-47.0) L 32.7 % (37.0-47.0) L Mean Corpuscular Volume 86 FL (80-99) 86 FL (80-99) Mean Corpuscular Hemoglobin 28.9 PG (27.0-31.0) 28.8 PG (27.0-31.0) Mean Corpuscular Hemoglobin Concent 33.6 G/DL (32.0-36.0) 33.4 G/DL (32.0-36.0) Red Cell Distribution Width 12.6 % (11.6-14.8) 13.0 % (11.6-14.8) Platelet Count 213 K/UL (150-450) 223 K/UL (150-450) Mean Platelet Volume 5.2 FL (6.5-10.1) L 5.3 FL (6.5-10.1) L Neutrophils (%) (Auto) % (45.0-75.0) 84.6 % (45.0-75.0) H Lymphocytes (%) (Auto) % (20.0-45.0) 8.2 % (20.0-45.0) L Monocytes (%) (Auto) % (1.0-10.0) 6.9 % (1.0-10.0) Eosinophils (%) (Auto) % (0.0-3.0) 0.0 % (0.0-3.0) Basophils (%) (Auto) % (0.0-2.0) 0.3 % (0.0-2.0) Differential Total Cells Counted 100 Neutrophils % (Manual) 87 % (45-75) H Lymphocytes % (Manual) 9 % (20-45) L Monocytes % (Manual) 3 % (1-10) Eosinophils % (Manual) 0 % (0-3) Basophils % (Manual) 0 % (0-2) Band Neutrophils 1 % (0-8) Platelet Estimate Adequate Platelet Morphology Normal Hypochromasia 1+ Anisocytosis 1+ Chlamydia Specimen Information Pending Chlamydia pneumoniae IgM Antibody Pending Chlamydia trachomatis IgM Ab Titer Pending Chlamydia psittaci IgM Ab Titer Pending Hepatitis A IgM Antibody Pending Hepatitis B Surface Antigen Pending Hepatitis B Core IgM Antibody Pending Hepatitis C Antibody Pending Monoscreen Pending HIV (1&2) Antibody Rapid Negative (NEGATIVE) Mycoplasma pneumoniae IgM Ab Titer Pending Sodium Level 137 MMOL/L (136-145) Potassium Level 4.4 MMOL/L (3.5-5.1) Chloride Level 105 MMOL/L (98-107) Carbon Dioxide Level 23 MMOL/L (21-32) Anion Gap 9 mmol/L (5-15) Blood Urea Nitrogen 11 mg/dL (7-18) Creatinine 0.9 MG/DL (0.55-1.30) Estimat Glomerular Filtration Rate > 60 mL/min (>60) Glucose Level 112 MG/DL (74-106) H Calcium Level 8.7 MG/DL (8.5-10.1) Total Bilirubin 0.7 MG/DL (0.2-1.0) Aspartate Amino Transf (AST/SGOT) 2147 U/L (15-37) H Alanine Aminotransferase (ALT/SGPT) 3063 U/L (12-78) H Alkaline Phosphatase 128 U/L (46-116) H Total Protein 9.0 G/DL (6.4-8.2) H Albumin 2.3 G/DL (3.4-5.0) L Globulin 6.7 g/dL Albumin/Globulin Ratio 0.3 (1.0-2.7) L Cytomegalovirus DNA Qual (PCR) Pending Current Medications Medications (Trade) Dose Ordered Sig/Tanvi Route PRN Reason Start Time Stop Time Status Last Admin Dose Admin Acetaminophen (Tylenol) 650 mg Q4H PRN ORAL Mild Pain/Temp > 100.5 08/09/18 19:00 09/08/18 18:59 Ampicillin Sodium/ Sulbactam Sodium 3 gm/Sodium Chloride 110 ml @ 220 mls/hr Q6H IVPB 08/09/18 20:00 08/16/18 19:59 08/10/18 14:22 Iopamidol (Isovue-300 100ml) 100 ml NOW PRN INJ Radiology Procedure 08/09/18 12:30 08/11/18 12:20 Ketorolac Tromethamine (Toradol 30mg) 30 mg Q6H PRN IV Severe Pain (Pain Scale 7-10) 08/09/18 19:15 08/14/18 19:14 08/10/18 12:46 Nystatin (Nystatin) 5 ml THREE TIMES A DAY ORAL 08/10/18 09:00 08/17/18 08:59 08/10/18 12:46 Pantoprazole (Protonix) 40 mg DAILY ORAL 08/10/18 09:00 09/09/18 08:59 08/10/18 08:29 Carlitos Suarez M.D. Aug 10, 2018 14:40
--- NOTE | 2018-08-10 14:56 | NUR ---
*-* INSURANCE *-* CLINICALS FAXED TO: [employer] P:[phone] F:[phone]
--- NOTE | 2018-08-10 15:04 | NUR ---
CASE MANAGEMENT:REVIEW FROM HOME TO ER CC: REFERRED TO ER BY PCP FOR SORE THROAT AND PAIN IN LT BREAST SI: UTI. PHARYNGITIS.HEPATITIS. ORAL THRUSH/TONGUE LESION 98.2 155 22 91/62 98% ON RA AST/ALT+2565/2425 IS: IV SOLUMEDROL 1L NS BOLUS X2 IV CLINDAMYCIN IV ROCEPHIN IV TORADOL URINE CX CT ABD/PELVIS CT NECK CXR BLOOD CX : TO MED/SURG [facility]
--- NOTE | 2018-08-10 15:42 | NUR ---
INTERQUAL CRITERIA MET FOR OBSERVATION
[2018-08-10 16:00] VITALS: BP 129/75
--- NOTE | 2018-08-10 18:52 | NUR ---
NURSE NOTES: Patient resting,medicated for complaint of pain.Able to eat soft diet.Call light within reach.Patient started on Bactoban for complaint of discomfort for open sores on bilateral hands as ordered from DR Suarez.
--- NOTE | 2018-08-10 19:30 | NUR ---
NURSE NOTES: Received patient awake in bed, alert and oriented x4, not in respiratory distress. Instructed the use of call light. Call light and needs in reach. Bed in lowest position and lock engaged. Will continue to monitor.
--- NOTE | 2018-08-10 19:37 | NUR ---
HAND-OFF: Report given to GUANACO BURNS
[2018-08-10 20:00] VITALS: BP 111/73
--- NOTE | 2018-08-10 22:00 | NUR ---
NURSE NOTES: Patient's urine drug test result came out positive for Cocaine and Marijuana. GISELLE Horner made aware.
--- NOTE | 2018-08-10 23:45 | History and Physical Report ---
DATE OF ADMISSION: 08/09/2018 NOTE: "POOR AUDIO QUALITY" SOURCE OF INFORMATION: The patient and EMR. HISTORY OF PRESENT ILLNESS: The patient is a 38-year-old female complaining of acute onset of pain in the throat, but she is not being able to drink and eat for the last two days. The patient had been advised by her primary care physician to come to the emergency room. At the time of evaluation, the patient demonstrated to have low blood pressure with pulse rate of 150, afebrile. Initial imaging was unremarkable for the acute disease . Chest x-ray unremarkable. The patient was admitted for additional diagnostic imaging. REVIEW OF SYSTEMS: Unremarkable. PAST MEDICAL HISTORY: Unremarkable. PAST SURGICAL HISTORY: Hysterectomy. FAMILY HISTORY: Reviewed and noncontributory. SOCIAL HISTORY: The patient is single. The patient denies any drug abuse, alcohol abuse, or tobacco use. ALLERGIES: Codeine. PHYSICAL EXAMINATION: VITAL SIGNS: Blood pressure 100/80, temperature 98.2, pulse oximetry 98% on room air. HEAD AND NECK: Atraumatic and normocephalic. CHEST: Clear to auscultation. ABDOMEN: Soft. No organomegaly. MUSCULOSKELETAL: No gross focal motor deficit. NEUROLOGIC: Awake, alert, and oriented x3. LABORATORY DATA: Labs dated August 09, shows WBC 6, hemoglobin 14, and platelet count 260,000. Sodium 133, potassium 3.8, BUN 16, and creatinine 1.6. AST 2600, ALT 2400. UA is positive for 2+ blood, many bacteria. ASSESSMENT: 1. Acute dysphagia. 2. Hepatitis - age indeterminate. 3. GI and DVT prophylaxes. PLAN OF CARE: Given the fact that the patient is not able to swallow secondary to the pain, it justifies the admission. We will check hepatitis panel. GI and Infectious Disease have been consulted. Ascencion De La Cruz M.D. DR: WENDY JOB#: [id number] CC: NA
[2018-08-11] VITALS (10 sets, daily range): BP systolic 115–136; BP diastolic 65–94
[2018-08-11] MEDS: Ketorolac 30mg Inj IV PRN ×4 (00:45→23:36)
[2018-08-11] MEDS: Ampicillin/Sulbactam Sod 3 GM in NS 110 ML IVPB SCH ×4 (01:50→20:51)
--- NOTE | 2018-08-11 06:49 | Pre-Procedure Note/Attestation ---
Pre-Procedure Note/Attestation Complete Prior to Procedure Planned Procedure: not applicable Procedure Narrative: egd Indications for Procedure Pre-Operative Diagnosis: gib Attestation I attest that I discussed the nature of the procedure; its benefits; risks and complications; and alternatives (and the risks and benefits of such alternatives ), prior to the procedure, with the patient (or the patient's legal associate financial representative). I attest that, if there was a reasonable possibility of needing a blood transfusion, the patient (or the patient's legal associate financial representative) was given the [facility] standardized written summary, pursuant to the [place] Blood Safety Act ([place] Health and Safety Code # 1645, as amended). I attest that I re-evaluated the patient just prior to the surgery and that there has been no change in the patient's H&P, except as documented below: Charlie Delgado MD Aug 11, 2018 06:49
--- NOTE | 2018-08-11 06:51 | Anethesia Preoperative Eval ---
Anesthesia Pre-op PMH/ROS General Date of Evaluation: Aug 11, 2018 Time of Evaluation: 06:40 Anesthesiologist: Isabel Ortiz CRNA ASA Score: ASA 3 Mallampati Score Class I : Soft palate, uvula, fauces, pillars visible Class II: Soft palate, uvula, fauces visible Class III: Soft palate, base of uvula visible Class IV: Only hard plate visible Mallampati Classification: Class II Surgeon: Danny Diagnosis: transaminitis, elevated LFTs Surgical Procedure: EGD diagnostic Anesthesia History: none Social History: smoking, drug use Family History: no anesthesia problems Allergies: Coded Allergies: CODEINE (Verified Allergy, Unknown, 08/09/18) Medications: see eMAR Patient NPO?: Yes NPO Date: Aug 11, 2018 NPO Time: 00:00 Past Medical History Cardiovascular: Denies: HTN, CAD, PR, valve dz, arrhythmia, other Pulmonary: Reports: other - Influenza, acute pharyngitis; Denies: asthma, COPD, CALLIE Gastrointestinal/Genitourinary: Reports: other - Elevated LFTs, transaminitis; Denies: GERD, CRI, ESRD Neurologic/Psychiatric: Denies: dementia, CVA, depression/anxiety, TIA, other Endocrine: Denies: DM, hypothyroidism, steroids, other HEENT: Denies: cataract (L), cataract (R), glaucoma, [place] (L), [place] (R), other Hematology/Immune: Denies: anemia, DVT, bleeding disorder, other Musculoskeletal/Integumentary: Denies: OA, RA, DJD, DDD, edema, other PMH Narrative: as above PSxH Narrative: hysterectomy Anesthesia Pre-op Phys. Exam Physician Exam Last Vital Signs Date Time Temp Pulse Resp B/P (MAP) Pulse Ox O2 Delivery O2 Flow Rate FiO2 08/11/18 04:00 98.1 81 18 117/76 (90) 100 08/10/18 21:00 Room Air Constitutional: NAD Neurologic: CN 2-12 intact Cardiovascular: RRR Respiratory: CTA Gastrointestinal: S/NT/ND Airway Exam Mallampati Score: Class II MO: full Neck: no limitations TMD: > 3 FB ROM: full Teeth: intact Dentures: no upper, no lower Anesthesia Pre-op A/P Labs Hematology Test 08/11/18 05:55 White Blood Count Pending Red Blood Count Pending Hemoglobin Pending Hematocrit Pending Mean Corpuscular Volume Pending Mean Corpuscular Hemoglobin Pending Mean Corpuscular Hemoglobin Concent Pending Red Cell Distribution Width Pending Platelet Count Pending Mean Platelet Volume Pending Neutrophils (%) (Auto) Pending Lymphocytes (%) (Auto) Pending Monocytes (%) (Auto) Pending Eosinophils (%) (Auto) Pending Basophils (%) (Auto) Pending Coagulation Test 08/11/18 05:55 Prothrombin Time Pending Prothromb Time International Ratio Pending Activated Partial Thromboplast Time Pending Chemistry Test 08/11/18 05:55 Sodium Level Pending Potassium Level Pending Chloride Level Pending Carbon Dioxide Level Pending Blood Urea Nitrogen Pending Creatinine Pending Estimat Glomerular Filtration Rate Pending Glucose Level Pending Calcium Level Pending Total Bilirubin Pending Direct Bilirubin Pending Aspartate Amino Transf (AST/SGOT) Pending Alanine Aminotransferase (ALT/SGPT) Pending Alkaline Phosphatase Pending Total Protein Pending Albumin Pending Studies Pre-op Studies: CXR - WNL, other - KUB hepatospleenomegaly Risk Assessment & Plan Assessment: asa 3, ok to proceed Plan: MAC Status Change Before Surgery: No Pre-Antibiotics Given Within 1 Hr of Incision: Isabel Barrios CRNA Aug 11, 2018 06:51
[2018-08-11] MEDS ORDERED: NS 500ML IVPB ONE (06:52)
[2018-08-11 06:55] LABS: ANION GAP 8 mmol/L (5-15); BLOOD UREA NITROGEN 12 mg/dL (7-18); CALCIUM 8.8 MG/DL (8.5-10.1); CARBON DIOXIDE 22 MMOL/L (21-32); CHLORIDE 106 MMOL/L (98-107); CREATININE 0.9 MG/DL (0.55-1.30); POTASSIUM 4.1 MMOL/L (3.5-5.1); SODIUM 136 MMOL/L (136-145)
[2018-08-11] MEDS ORDERED: Hydromorphone 0.5mg/0.5ml inj IVP PRN (07:00)
[2018-08-11] MEDS ORDERED: Lidocaine 1% MPF 10mg/ml 5ml ONE (07:00)
[2018-08-11] MEDS ORDERED: Propofol 200mg/20ml IV ONE (07:00)
[2018-08-11 07:05] LABS: ALANINE AMINOTRANSFERASE 3456 U/L (12-78); ALBUMIN 2.6 G/DL (3.4-5.0); ALKALINE PHOSPHATASE 167 U/L (46-116); ASPARTATE AMINO TRANSFERASE 1572 U/L (15-37); BILIRUBIN,DIRECT 0.3 MG/DL (0.0-0.3); BILIRUBIN,TOTAL 0.6 MG/DL (0.2-1.0)
--- NOTE | 2018-08-11 07:05 | Endoscopy Procedure Note ---
Endoscopy Procedure Note General Indication for Procedure: anemia Procedures Performed: EGD Operative Findings/Diagnosis: gastritis Specimen: yes Pt Tolerated Procedure Well: Yes Estimated Blood Loss: none Anesthesia Anesthesiologist: flaca Anesthesia: MAC Inserted Devices Implant(s) used?: No GI Core Measures 50 yrs or older w/o bx or poly: Not Applicable 10yrs. F/U not recommended: Not Applicable Charlie Delgado MD Aug 11, 2018 07:05
[2018-08-11 07:16] LABS: HEMATOCRIT 35.3 % (37.0-47.0); HEMOGLOBIN 11.6 G/DL (12.0-16.0); MEAN CORPUSCULAR VOLUME 86 FL (80-99); PLATELET COUNT 344 K/UL (150-450); RED BLOOD COUNT 4.08 M/UL (4.20-5.40); RED CELL DISTRIBUTION WIDTH 13.2 % (11.6-14.8); WHITE BLOOD COUNT 12.8 K/UL (4.8-10.8)
--- NOTE | 2018-08-11 07:23 | Immediate Post-Op Evaluation ---
Immediate Post-Op Evalulation Immediate Post-Op Evalulation Procedure: EGD diagnostic Date of Evaluation: Aug 11, 2018 Time of Evaluation: 07:13 IV Fluids: 0.9 NS 100 ml Blood Pressure Systolic: 116 Blood Pressure Diastolic: 81 Pulse Rate: 74 Respiratory Rate: 16 O2 Sat by Pulse Oximetry: 98 Temperature (Fahrenheit): 97.8 Pain Score (1-10): 3 Nausea: No Vomiting: No Complications none Patient Status: awake, reacts, patent Hydration Status: adequate Given Within 1 Hr of Incision: Isabel Barrios CRNA Aug 11, 2018 07:23
--- NOTE | 2018-08-11 07:34 | NUR ---
HAND-OFF: Report given to KATY Marrufo. Patient went to GI lab for procedure.
[2018-08-11 07:35] LABS: INR 1.5 (0.9-1.1)
--- NOTE | 2018-08-11 08:00 | NUR ---
NURSE NOTES: Patient is back from GI Lab,patient is alert and oriented,respirations are unlabored,will monitor.
--- NOTE | 2018-08-11 08:30 | Procedure Note ---
DATE OF PROCEDURE: 08/11/2018 SURGEON: Charlie Delgado M.D. PROCEDURE: Upper endoscopy with biopsy. ANESTHESIA: Per INSPECTOR GENERAL . INSTRUMENT: Olympus adult flexible upper endoscope. INDICATION: Anemia and dysphagia. REASON FOR PROCEDURE: The procedure, risks, benefits, and possible consequences, including hemorrhage, aspiration, perforation and infection, and alternative treatments, were explained to the patient/legal guardian by Dr. Charlie Delgado and the patient/legal guardian understood and accepted these risks. PROCEDURE IN DETAIL: After informed consent was obtained and the patient was adequately sedated, Olympus upper endoscope was advanced from mouth into the second portion of the duodenum and retroflexion was performed in the stomach. The patient had evidence of gastritis more prominent in the body of the stomach. Biopsy from the body and antrum was obtained. No evidence of any active bleeding at this time, no esophageal or gastric varices. The patient tolerated the procedure very well without any complication. SUMMARY OF FINDINGS: Moderate to severe gastritis, especially in the body of the stomach, status post biopsy. RECOMMENDATIONS: Follow up biopsy results and treat accordingly. I want to thank, Dr. De La Cruz, for this kind referral. Charlie Delgado M.D. DR: PAMELA JOB#: [id number] CC: Ascencion De La Cruz M.D.; Fax#: [phone]
[2018-08-11] MEDS: Nystatin Susp 500,000 units/5ml ORAL SCH ×3 (09:40→18:46)
--- NOTE | 2018-08-11 10:26 | NUR ---
ST NOTE: SWALLOW STATUS: PT SEEN AT BEDSIDE IN AM. PT UNDERWENT GI PROCEDURE THIS AM. PER MD NOTE: The patient had evidence of gastritis more prominent in the body of the stomach. Biopsy from the body and antrum was obtained. No evidence of any active bleeding at this time, no esophageal or gastric varices. PT SEEN AT BEDSIDE IN AM. ALERT, VERBAL, ORIENTED. PER PT, STILL HAVING PAINFUL SWALLOWING AND WOULD LIKE TO HAVE PAIN MEDICATION EVERY 4 HOURS. INFORMED PT THAT RN WILL NOTIFY MD. PER PT, ABLE TO TOLERATE REGULAR FOOD IN SMALL AMOUNT. CONSIDER ENT CONSULT D/W YAN BURNS, THE STAFF AND N.P.MICHAEL.
--- NOTE | 2018-08-11 10:50 | Diagnostic Imaging Report ---
Indication:Abdominal pain Technique: Grayscale and duplex Doppler imaging of the abdomen performed. Comparison: None Findings: The liver is enlarged measuring about 20 cm. The gallbladder is unremarkable. The demonstrated part of the pancreas, aorta and IVC show no abnormalities. Both kidneys appear unremarkable. The spleen is borderline enlarged measuring close to 13 cm. There is no biliary ductal dilatation identified. Doppler evaluation of the main portal vein shows patency. There is no ascites. No hydronephrosis seen. CBD is 3.8 mm in diameter. Impression: Hepatomegaly. Borderline splenomegaly.
--- NOTE | 2018-08-11 13:28 | 48 Hour Post Anesthesia Eval ---
Post Anesthesia Evaluation Procedure: EGD diagnostic Date of Evaluation: Aug 11, 2018 Time of Evaluation: 13:27 Blood Pressure Systolic: 123 0: 69 Pulse Rate: 76 Respiratory Rate: 20 Temperature (Fahrenheit): 98 O2 Sat by Pulse Oximetry: 99 Airway: patent Nausea: No Vomiting: No Pain Intensity: 0 Hydration Status: adequate Cardiopulmonary Status: stable Mental Status/LOC: patient returned to baseline Follow-up Care/Observations: per GI Post-Anesthesia Complications: none Follow-up care needed: ready to discharge Isabel Ortiz CRNA Aug 11, 2018 13:28
--- NOTE | 2018-08-11 15:10 | NUR ---
Social Work This Sw received a consult to assist with a home safety evaluation. This SW met with patient who remains independent with ADLs, ambulation and planning to return home with her boyfriend. Patient admitted to a long history of substance abuse (was using alcohol, quit, then turned to Cocaine). This Sw discussed health risks involved with both substances, while offering substance abuse resources. Patient declined resources, stating she plans to follow up with her counselor. Patient expressing concerns that she wont be discharged by next Tuesday (has an appointment with [employer] housing that she doesn't want to miss). Pending progress and plans for discharge at this time; SW requesting a letter stating hospitalization if she misses her appointment with [employer]. Patient discussed with this SW that she lives with her boyfriend who has been using Cocaine and wanting to live in her own place, where she is not influences to use Cocaine as well. Brief supportive counseling/support provided to patient by this SW.
--- NOTE | 2018-08-11 15:15 | NUR ---
CASE MANAGEMENT: REVIEW 08/11/18 SI: ANEMIA. ACUTE DYSPHAGIA. HEPATITIS EGD(+) SEVERE GASTRITIS 98.0 77 20 116/75 99% ON RA WBC+12.8 AST/ALT+1572/3456 IS: IV AMPICILLIN Q6HRS PROTONIX PO QD NYSTATIN PO TID : MED/SURG [facility]
--- NOTE | 2018-08-11 16:22 | Infectious Diseases Prog Note ---
Assessment/Plan Problems: (1) Pharyngitis, acute Assessment & Plan: no evidence of infectious etiology so far with negative influenza screening , monospot , and strep Group A , await CMV , mycoplasma and chlamydia , switch unasyn empiric coverage to Augmentin . remove from droplets isolation for now (2) UTI (urinary tract infection) Assessment & Plan: continue unasyn pending urine culture (3) Hepatitis Assessment & Plan: suspect due to cocaine abuse with negative viral hepatitis and HIV , monitor LFT , recommend GI eval (4) Oral thrush Assessment & Plan: continue nystatin and follow up with oral surgeon for her tounge ulcers , HIV test is negative Subjective Constitutional: Reports: no symptoms HEENT: Reports: congestion Respiratory: Reports: no symptoms Breasts: Reports: no symptoms Cardiovascular: Reports: no symptoms Gastrointestinal/Abdominal: Reports: no symptoms Genitourinary: Reports: no symptoms Neurologic: Reports: no symptoms Psychiatric: Reports: no symptoms Skin: Reports: no symptoms Endocrine: Reports: no symptoms Hematologic: Reports: no symptoms Musculoskeletal: Reports: no symptoms Allergies: Coded Allergies: CODEINE (Verified Allergy, Unknown, 08/09/18) Objective Vital Signs Last 24 Hour Vital Signs Date Time Temp Pulse Resp B/P (MAP) Pulse Ox O2 Delivery O2 Flow Rate FiO2 08/11/18 13:28 76 20 99 08/11/18 12:00 98.0 77 20 116/75 (89) 08/11/18 09:00 Room Air 08/11/18 08:00 98.0 76 20 123/69 (87) 99 08/11/18 07:35 97.6 66 23 136/94 97 Room Air 08/11/18 07:25 68 21 128/91 97 Room Air 08/11/18 07:23 74 16 98 08/11/18 07:20 79 20 117/87 98 Room Air 08/11/18 07:13 97.8 76 18 116/81 100 Nasal Cannula 3 08/11/18 04:00 98.1 81 18 117/76 (90) 100 08/11/18 00:00 98.6 79 18 115/75 (88) 99 08/10/18 21:00 Room Air 08/10/18 20:00 98.3 75 18 111/73 (86) 98 Height (Feet): 5 Height (Inches): 5.00 Weight (Pounds): 180 General Appearance: WD/WN, no acute distress HEENT: normocephalic, atraumatic, anicteric, mucous membranes moist, PERRL, pharynx normal, supple, thrush, other - tounge ulcers with thrush Respiratory/Chest: chest wall non-tender, lungs clear, normal breath sounds, no respiratory distress, no accessory muscle use Cardiovascular: normal peripheral pulses, normal rate, regular rhythm, no gallop/murmur, no JVD Abdomen: normal bowel sounds, soft, non tender, no organomegaly, non distended , no mass Extremities: no cyanosis, no clubbing Skin: no rash, no lesions, no ulcers Neurologic/Psychiatric: alert, oriented x 3, responsive Lymphatic: no neck adenopathy, no groin adenopathy Musculoskeletal: normal muscle bulk, no effusion Microbiology Date/Time Source Procedure Growth Status 08/09/18 12:30 Blood Blood Culture - Preliminary NO GROWTH AFTER 24 HOURS Resulted 08/09/18 12:30 Blood Blood Culture - Preliminary NO GROWTH AFTER 24 HOURS Resulted 08/09/18 22:15 Nose Influenza Types A,B Antigen (LEEANN) - Final Complete 08/09/18 13:00 Urine,Clean Catch Urine Culture - Preliminary Mixed Gram Positive Organism Resulted Laboratory Tests Test 08/10/18 19:00 08/11/18 05:55 Urine Opiates Screen Negative (NEGATIVE) Urine Barbiturates Screen Negative (NEGATIVE) Phencyclidine (PCP) Screen Negative (NEGATIVE) Urine Amphetamines Screen Negative (NEGATIVE) Urine Benzodiazepines Screen Negative (NEGATIVE) Urine Cocaine Screen Positive (NEGATIVE) H Urine Marijuana (THC) Screen Positive (NEGATIVE) H White Blood Count 12.8 K/UL (4.8-10.8) #H Red Blood Count 4.08 M/UL (4.20-5.40) L Hemoglobin 11.6 G/DL (12.0-16.0) L Hematocrit 35.3 % (37.0-47.0) L Mean Corpuscular Volume 86 FL (80-99) Mean Corpuscular Hemoglobin 28.5 PG (27.0-31.0) Mean Corpuscular Hemoglobin Concent 33.0 G/DL (32.0-36.0) Red Cell Distribution Width 13.2 % (11.6-14.8) Platelet Count 344 K/UL (150-450) # Mean Platelet Volume 5.7 FL (6.5-10.1) L Neutrophils (%) (Auto) % (45.0-75.0) Lymphocytes (%) (Auto) % (20.0-45.0) Monocytes (%) (Auto) % (1.0-10.0) Eosinophils (%) (Auto) % (0.0-3.0) Basophils (%) (Auto) % (0.0-2.0) Differential Total Cells Counted 100 Neutrophils % (Manual) 85 % (45-75) H Lymphocytes % (Manual) 11 % (20-45) L Monocytes % (Manual) 4 % (1-10) Eosinophils % (Manual) 0 % (0-3) Basophils % (Manual) 0 % (0-2) Band Neutrophils 0 % (0-8) Platelet Estimate Adequate Platelet Morphology Normal Red Blood Cell Morphology Normal Prothrombin Time 15.4 SEC (9.30-11.50) H Prothromb Time International Ratio 1.5 (0.9-1.1) H Activated Partial Thromboplast Time 28 SEC (23-33) Sodium Level 136 MMOL/L (136-145) Potassium Level 4.1 MMOL/L (3.5-5.1) Chloride Level 106 MMOL/L (98-107) Carbon Dioxide Level 22 MMOL/L (21-32) Anion Gap 8 mmol/L (5-15) Blood Urea Nitrogen 12 mg/dL (7-18) Creatinine 0.9 MG/DL (0.55-1.30) Estimat Glomerular Filtration Rate > 60 mL/min (>60) Glucose Level 114 MG/DL (74-106) H Calcium Level 8.8 MG/DL (8.5-10.1) Total Bilirubin 0.6 MG/DL (0.2-1.0) Direct Bilirubin 0.3 MG/DL (0.0-0.3) Aspartate Amino Transf (AST/SGOT) 1572 U/L (15-37) H Alanine Aminotransferase (ALT/SGPT) 3456 U/L (12-78) H Alkaline Phosphatase 167 U/L (46-116) H Total Protein 9.8 G/DL (6.4-8.2) H Albumin 2.6 G/DL (3.4-5.0) L Hepatitis A IgM Antibody Pending Hepatitis B Surface Antigen Pending Hepatitis B Core IgM Antibody Pending Hepatitis C Antibody Pending Current Medications Medications (Trade) Dose Ordered Sig/Tanvi Route PRN Reason Start Time Stop Time Status Last Admin Dose Admin Acetaminophen (Tylenol) 650 mg Q4H PRN ORAL Mild Pain/Temp > 100.5 08/09/18 19:00 09/08/18 18:59 Ampicillin Sodium/ Sulbactam Sodium 3 gm/Sodium Chloride 110 ml @ 220 mls/hr Q6H IVPB 08/09/18 20:00 08/16/18 19:59 08/11/18 15:23 Ketorolac Tromethamine (Toradol 30mg) 30 mg Q6H PRN IV Severe Pain (Pain Scale 7-10) 08/09/18 19:15 08/14/18 19:14 08/11/18 08:46 Mupirocin (Bactroban Oint) 1 applic BID TOPIC 08/10/18 18:00 08/15/18 17:59 08/11/18 09:44 Nystatin (Nystatin) 5 ml THREE TIMES A DAY ORAL 08/10/18 09:00 08/17/18 08:59 08/11/18 13:49 Pantoprazole (Protonix) 40 mg DAILY ORAL 08/10/18 09:00 09/09/18 08:59 08/11/18 09:40 Carlitos Suarez M.D. Aug 11, 2018 16:22
--- NOTE | 2018-08-11 16:58 | General Progress Note ---
Assessment/Plan Assessment/Plan S: My throat hurts O: appears comfortable. Tolerating solid diet. HYSICAL EXAMINATION: HEAD AND NECK: Atraumatic and normocephalic. CHEST: Clear to auscultation. ABDOMEN: Soft. No organomegaly. MUSCULOSKELETAL: No gross focal motor deficit. NEUROLOGIC: Awake, alert, and oriented x3. Meds: reviewed and reconciled, including Unasyn ASSESSMENT: 1. Acute dysphagia. 2. Hepatitis - age indeterminate. 3. GI and DVT prophylaxes. Plan: Post EGD pending Urine culture on empirical antibiotic Subjective Allergies: Coded Allergies: CODEINE (Verified Allergy, Unknown, 08/09/18) Objective Last 24 Hour Vital Signs Date Time Temp Pulse Resp B/P (MAP) Pulse Ox O2 Delivery O2 Flow Rate FiO2 08/11/18 13:28 76 20 99 08/11/18 12:00 98.0 77 20 116/75 (89) 08/11/18 09:00 Room Air 08/11/18 08:00 98.0 76 20 123/69 (87) 99 08/11/18 07:35 97.6 66 23 136/94 97 Room Air 08/11/18 07:25 68 21 128/91 97 Room Air 08/11/18 07:23 74 16 98 08/11/18 07:20 79 20 117/87 98 Room Air 08/11/18 07:13 97.8 76 18 116/81 100 Nasal Cannula 3 08/11/18 04:00 98.1 81 18 117/76 (90) 100 08/11/18 00:00 98.6 79 18 115/75 (88) 99 08/10/18 21:00 Room Air 08/10/18 20:00 98.3 75 18 111/73 (86) 98 Intake and Output 08/10/18 08/11/18 18:59 06:59 Intake Total 700 ml 360 ml Balance 700 ml 360 ml Intake Oral 700 ml 250 ml IV Total 110 ml # Voids 4 4 Laboratory Tests 08/10/18 19:00: Urine Opiates Screen Negative, Urine Barbiturates Screen Negative, Phencyclidine (PCP) Screen Negative, Urine Amphetamines Screen Negative, Urine Benzodiazepines Screen Negative, Urine Cocaine Screen PositiveH, Urine Marijuana (THC) Screen PositiveH 08/11/18 05:55: White Blood Count 12.8#H, Red Blood Count 4.08L, Hemoglobin 11.6L, Hematocrit 35.3L, Mean Corpuscular Volume 86, Mean Corpuscular Hemoglobin 28.5, Mean Corpuscular Hemoglobin Concent 33.0, Red Cell Distribution Width 13.2, Platelet Count 344#, Mean Platelet Volume 5.7L, Neutrophils (%) (Auto) , Lymphocytes (%) (Auto) , Monocytes (%) (Auto) , Eosinophils (%) (Auto) , Basophils (%) (Auto) , Differential Total Cells Counted 100, Neutrophils % (Manual) 85H, Lymphocytes % (Manual) 11L, Monocytes % (Manual) 4, Eosinophils % (Manual) 0, Basophils % ( Manual) 0, Band Neutrophils 0, Platelet Estimate Adequate, Platelet Morphology Normal, Red Blood Cell Morphology Normal, Prothrombin Time 15.4H, Prothromb Time International Ratio 1.5H, Activated Partial Thromboplast Time 28, Sodium Level 136, Potassium Level 4.1, Chloride Level 106, Carbon Dioxide Level 22, Anion Gap 8, Blood Urea Nitrogen 12, Creatinine 0.9, Estimat Glomerular Filtration Rate > 60, Glucose Level 114H, Calcium Level 8.8, Total Bilirubin 0.6 , Direct Bilirubin 0.3, Aspartate Amino Transf (AST/SGOT) 1572H, Alanine Aminotransferase (ALT/SGPT) 3456H, Alkaline Phosphatase 167H, Total Protein 9.8H , Albumin 2.6L, Hepatitis A IgM Antibody [Pending], Hepatitis B Surface Antigen [Pending], Hepatitis B Core IgM Antibody [Pending], Hepatitis C Antibody [ Pending] Height (Feet): 5 Height (Inches): 5.00 Weight (Pounds): 180 Ascencion De La Cruz MD Aug 11, 2018 16:58
--- NOTE | 2018-08-11 19:00 | NUR ---
NURSE NOTES: Patient tolerated soft food prefer to eat mash potatoes,still having feeling of discomfort inside her throat .pain med given prn as ordered.
--- NOTE | 2018-08-11 20:00 | NUR ---
HAND-OFF: Report given to JOANN BURNS.
--- NOTE | 2018-08-11 20:05 | NUR ---
NURSE NOTES: Pt received from Niru Desouza RN alert and oriented x4 with no complaints or s/s of pain, SOB, or n/v. IV site asymptomatic and patent, although pt complains that she wants it changed out because "it's dirty". Bed in lowest position, call light and belongings within reach.
[2018-08-12] VITALS: BP 117/79
[2018-08-12] MEDS: Ampicillin/Sulbactam Sod 3 GM in NS 110 ML IVPB SCH ×4 (02:16→20:40)
[2018-08-12 04:00] VITALS: BP 130/70
[2018-08-12] MEDS: Ketorolac 30mg Inj IV PRN ×4 (06:24→23:29)
--- NOTE | 2018-08-12 07:51 | NUR ---
HAND-OFF: Report given to KATY Carroll.
[2018-08-12 08:00] VITALS: BP 115/83
[2018-08-12 08:10] LABS: BASOPHILS % (AUTO) 0.9 % (0.0-2.0); EOSINOPHILS % (AUTO) 2.2 % (0.0-3.0); HEMOGLOBIN 10.8 G/DL (12.0-16.0); LYMPHOCYTES % (AUTO) 17.1 % (20.0-45.0); MEAN CORPUSCULAR VOLUME 87 FL (80-99); MONOCYTES % (AUTO) 11.8 % (1.0-10.0); NEUTROPHILS % (AUTO) 68.1 % (45.0-75.0); PLATELET COUNT 255 K/UL (150-450); RED BLOOD COUNT 3.78 M/UL (4.20-5.40); RED CELL DISTRIBUTION WIDTH 13.8 % (11.6-14.8); WHITE BLOOD COUNT 5.3 K/UL (4.8-10.8)
--- NOTE | 2018-08-12 08:33 | NUR ---
NURSE NOTES: Pt able to verbalize known needs . Current plan of care will be followed call light in reach.
[2018-08-12 08:45] LABS: ALANINE AMINOTRANSFERASE 1777 U/L (12-78); ALBUMIN/GLOBULIN RATIO 0.4 (1.0-2.7); ALKALINE PHOSPHATASE 122 U/L (46-116); ANION GAP 6 mmol/L (5-15); ASPARTATE AMINO TRANSFERASE 339 U/L (15-37); BILIRUBIN,TOTAL 0.4 MG/DL (0.2-1.0); BLOOD UREA NITROGEN 11 mg/dL (7-18); CALCIUM 8.1 MG/DL (8.5-10.1); CARBON DIOXIDE 24 MMOL/L (21-32); CHLORIDE 107 MMOL/L (98-107); CREATININE 0.8 MG/DL (0.55-1.30); POTASSIUM 3.9 MMOL/L (3.5-5.1); SODIUM 137 MMOL/L (136-145)
[2018-08-12] MEDS: Nystatin Susp 500,000 units/5ml ORAL SCH ×3 (09:19→17:20)
--- NOTE | 2018-08-12 11:36 | NUR ---
CASE MANAGEMENT: REVIEW 08/12/2018 SI: ANEMIA. ACUTE DYSPHAGIA. HEPATITIS EGD(+) SEVERE GASTRITIS T 97.6 HR 72 RR 20 B/P 115/83 SATS 99% ON RA CA 8.1 AST 339 ALT 1777 ALP 122 IS: IV AMPICILLIN Q6HRS PROTONIX PO QD NYSTATIN PO TID : MED/SURG [facility]
[2018-08-12 12:00] VITALS: BP 130/72
--- NOTE | 2018-08-12 12:10 | General Progress Note ---
Assessment/Plan Assessment/Plan S: still, My throat hurts O: appears comfortable. Tolerating solid diet. HYSICAL EXAMINATION: HEAD AND NECK: Atraumatic and normocephalic. CHEST: Clear to auscultation.ABDOMEN: Soft. No organomegaly. MUSCULOSKELETAL: No gross focal motor deficit.NEUROLOGIC: Awake, alert, and oriented x3. Meds: reviewed and reconciled, including Unasyn ASSESSMENT: 1. Acute dysphagia. No evidence of active acute infectious 2. Hepatitis - age indeterminate. 3. GI and DVT prophylaxes. Plan: Post EGD Once clear by GI- may followup as out patient on empirical antibiotic Subjective Allergies: Coded Allergies: CODEINE (Verified Allergy, Unknown, 08/09/18) Objective Last 24 Hour Vital Signs Date Time Temp Pulse Resp B/P (MAP) Pulse Ox O2 Delivery O2 Flow Rate FiO2 08/12/18 09:00 Room Air 08/12/18 08:00 97.6 72 20 115/83 (94) 99 08/12/18 04:00 97.2 60 19 130/70 (90) 95 08/12/18 00:00 97.3 68 18 117/79 (92) 95 08/11/18 21:00 Room Air 08/11/18 20:00 98.2 70 20 115/75 (88) 98 08/11/18 16:00 97.7 76 20 116/65 (82) 98 08/11/18 13:28 76 20 99 Intake and Output 08/11/18 08/12/18 19:00 07:00 Intake Total 1190 ml 400 ml Output Total 0 ml Balance 1190 ml 400 ml Intake Oral 840 ml 400 ml IV Total 350 ml Output Estimated Blood Loss 0 ml # Voids 3 3 Laboratory Tests 08/12/18 06:20: White Blood Count 5.3#, Red Blood Count 3.78L, Hemoglobin 10.8L, Hematocrit 33.0L, Mean Corpuscular Volume 87, Mean Corpuscular Hemoglobin 28.5, Mean Corpuscular Hemoglobin Concent 32.7, Red Cell Distribution Width 13.8, Platelet Count 255, Mean Platelet Volume 5.5L, Neutrophils (%) (Auto) 68.1, Lymphocytes ( %) (Auto) 17.1L, Monocytes (%) (Auto) 11.8H, Eosinophils (%) (Auto) 2.2, Basophils (%) (Auto) 0.9, Sodium Level 137, Potassium Level 3.9, Chloride Level 107, Carbon Dioxide Level 24, Anion Gap 6, Blood Urea Nitrogen 11, Creatinine 0.8, Estimat Glomerular Filtration Rate > 60, Glucose Level 87, Calcium Level 8.1L, Total Bilirubin 0.4, Aspartate Amino Transf (AST/SGOT) 339H, Alanine Aminotransferase (ALT/SGPT) 1777H, Alkaline Phosphatase 122H, Total Protein 7.5 , Albumin 2.0L, Globulin 5.5, Albumin/Globulin Ratio 0.4L Height (Feet): 5 Height (Inches): 5.00 Weight (Pounds): 180 Ascencion De La Cruz MD Aug 12, 2018 12:10
[2018-08-12] MEDS: Lidocaine 2% Visc 15ml soln ORAL PRN ×3 (13:55→22:20)
--- NOTE | 2018-08-12 15:34 | Infectious Diseases Prog Note ---
Assessment/Plan Problems: (1) Pharyngitis, acute Assessment & Plan: no evidence of infectious etiology so far with negative influenza screening , monospot , and strep Group A , await CMV , mycoplasma and chlamydia , switch unasyn empiric coverage to Augmentin . remove from droplets isolation for now (2) UTI (urinary tract infection) Assessment & Plan: continue unasyn pending urine culture (3) Hepatitis Assessment & Plan: suspect due to cocaine abuse with negative viral hepatitis and HIV , monitor LFT , follow up with GI (4) Oral thrush Assessment & Plan: continue nystatin and follow up with oral surgeon for her tounge ulcers , HIV test is negative Subjective Constitutional: Reports: no symptoms HEENT: Reports: congestion Respiratory: Reports: no symptoms Breasts: Reports: no symptoms Cardiovascular: Reports: no symptoms Gastrointestinal/Abdominal: Reports: no symptoms Genitourinary: Reports: no symptoms Neurologic: Reports: no symptoms Psychiatric: Reports: no symptoms Skin: Reports: no symptoms Endocrine: Reports: no symptoms Hematologic: Reports: no symptoms Musculoskeletal: Reports: no symptoms Allergies: Coded Allergies: CODEINE (Verified Allergy, Unknown, 08/09/18) Objective Vital Signs Last 24 Hour Vital Signs Date Time Temp Pulse Resp B/P (MAP) Pulse Ox O2 Delivery O2 Flow Rate FiO2 08/12/18 12:00 98.6 98 20 130/72 (91) 95 08/12/18 09:00 Room Air 08/12/18 08:00 97.6 72 20 115/83 (94) 99 08/12/18 04:00 97.2 60 19 130/70 (90) 95 08/12/18 00:00 97.3 68 18 117/79 (92) 95 08/11/18 21:00 Room Air 08/11/18 20:00 98.2 70 20 115/75 (88) 98 08/11/18 16:00 97.7 76 20 116/65 (82) 98 Height (Feet): 5 Height (Inches): 5.00 Weight (Pounds): 180 General Appearance: WD/WN, no acute distress HEENT: normocephalic, atraumatic, anicteric, mucous membranes moist, PERRL, EOMI, supple, no JVD, thrush Respiratory/Chest: chest wall non-tender, lungs clear, normal breath sounds, no respiratory distress, no accessory muscle use Cardiovascular: normal peripheral pulses, normal rate, regular rhythm, no gallop/murmur, no JVD Abdomen: normal bowel sounds, soft, non tender, no organomegaly, non distended , no mass, no scars Extremities: no cyanosis, no clubbing Skin: no rash, no lesions, no ulcers Neurologic/Psychiatric: plant safety leader II-XII grossly normal, no motor/sensory deficits, alert, oriented x 3, responsive Lymphatic: no neck adenopathy, no groin adenopathy Musculoskeletal: normal muscle bulk, no effusion Microbiology Date/Time Source Procedure Growth Status 08/09/18 22:15 Throat Throat Culture - Preliminary Resulted 08/09/18 22:15 Nose Influenza Types A,B Antigen (LEEANN) - Final Complete Laboratory Tests Test 08/12/18 06:20 White Blood Count 5.3 K/UL (4.8-10.8) # Red Blood Count 3.78 M/UL (4.20-5.40) L Hemoglobin 10.8 G/DL (12.0-16.0) L Hematocrit 33.0 % (37.0-47.0) L Mean Corpuscular Volume 87 FL (80-99) Mean Corpuscular Hemoglobin 28.5 PG (27.0-31.0) Mean Corpuscular Hemoglobin Concent 32.7 G/DL (32.0-36.0) Red Cell Distribution Width 13.8 % (11.6-14.8) Platelet Count 255 K/UL (150-450) Mean Platelet Volume 5.5 FL (6.5-10.1) L Neutrophils (%) (Auto) 68.1 % (45.0-75.0) Lymphocytes (%) (Auto) 17.1 % (20.0-45.0) L Monocytes (%) (Auto) 11.8 % (1.0-10.0) H Eosinophils (%) (Auto) 2.2 % (0.0-3.0) Basophils (%) (Auto) 0.9 % (0.0-2.0) Sodium Level 137 MMOL/L (136-145) Potassium Level 3.9 MMOL/L (3.5-5.1) Chloride Level 107 MMOL/L (98-107) Carbon Dioxide Level 24 MMOL/L (21-32) Anion Gap 6 mmol/L (5-15) Blood Urea Nitrogen 11 mg/dL (7-18) Creatinine 0.8 MG/DL (0.55-1.30) Estimat Glomerular Filtration Rate > 60 mL/min (>60) Glucose Level 87 MG/DL (74-106) Calcium Level 8.1 MG/DL (8.5-10.1) L Total Bilirubin 0.4 MG/DL (0.2-1.0) Aspartate Amino Transf (AST/SGOT) 339 U/L (15-37) H Alanine Aminotransferase (ALT/SGPT) 1777 U/L (12-78) H Alkaline Phosphatase 122 U/L (46-116) H Total Protein 7.5 G/DL (6.4-8.2) Albumin 2.0 G/DL (3.4-5.0) L Globulin 5.5 g/dL Albumin/Globulin Ratio 0.4 (1.0-2.7) L Current Medications Medications (Trade) Dose Ordered Sig/Tanvi Route PRN Reason Start Time Stop Time Status Last Admin Dose Admin Acetaminophen (Tylenol) 650 mg Q4H PRN ORAL Mild Pain/Temp > 100.5 08/09/18 19:00 09/08/18 18:59 Ampicillin Sodium/ Sulbactam Sodium 3 gm/Sodium Chloride 110 ml @ 220 mls/hr Q6H IVPB 08/09/18 20:00 08/16/18 19:59 08/12/18 13:56 Ketorolac Tromethamine (Toradol 30mg) 30 mg Q6H PRN IV Severe Pain (Pain Scale 7-10) 08/09/18 19:15 08/14/18 19:14 08/12/18 11:18 Lidocaine HCl (Xylocaine Viscous) 15 ml Q4H PRN ORAL For Pain 08/12/18 12:00 09/11/18 11:59 08/12/18 13:55 Mupirocin (Bactroban Oint) 1 applic BID TOPIC 08/10/18 18:00 08/15/18 17:59 08/12/18 09:32 Nystatin (Nystatin) 5 ml THREE TIMES A DAY ORAL 08/10/18 09:00 08/17/18 08:59 08/12/18 09:27 Pantoprazole (Protonix) 40 mg DAILY ORAL 08/10/18 09:00 09/09/18 08:59 08/12/18 09:26 Carlitos Suarez M.D. Aug 12, 2018 15:34
[2018-08-12 16:00] VITALS: BP 133/96
--- NOTE | 2018-08-12 19:02 | NUR ---
NURSE NOTES: required pt teaching for use of nystatin. Call light in reach , complaining of severe sore throat through out shift. Dr Lucio De La Cruz called to report that in house rapid strep test is not available, regular strep exam available. Rapid test can be done if specimen is sent out. Cooperated with plan of care ready for pt teaching, verbalized understanding o what to report to nursing staff. Denies any possible s/e related to antibiotic use. Current plan of care will be offer
--- NOTE | 2018-08-12 19:20 | NUR ---
NURSE NOTES: Received patient in bed awake. A&O x4. No complain of of pain or discomfort at this time. IV line intact saline locked. Bed in lowest position and locked. Call light within reach. Will continue to monitor.
--- NOTE | 2018-08-12 19:41 | NUR ---
HAND-OFF: Report given to Winston BURNS.
[2018-08-12 20:00] VITALS: BP 123/74
[2018-08-13] VITALS: BP 126/86
[2018-08-13] MEDS: Ampicillin/Sulbactam Sod 3 GM in NS 110 ML IVPB SCH ×3 (02:10→13:41)
[2018-08-13 04:00] VITALS: BP 119/79
[2018-08-13] MEDS: Ketorolac 30mg Inj IV PRN ×2 (06:30→12:45)
[2018-08-13] MEDS: Lidocaine 2% Visc 15ml soln ORAL PRN ×2 (06:30→11:59)
--- NOTE | 2018-08-13 07:09 | NUR ---
HAND-OFF: Report given to KATY Carroll.
--- NOTE | 2018-08-13 07:15 | NUR ---
NURSE NOTES: Patient awake sitting up in bed waiting for breakfast. Per report of outgoing nurse recently received pain medication. Verbalized effectiveness of lidocaine oral solution . " I am been suffering for 3 days ; I should have gotten this earlier" current plan of care will be followed
[2018-08-13 08:00] VITALS: BP 120/78
[2018-08-13] MEDS: Nystatin Susp 500,000 units/5ml ORAL SCH ×2 (08:40→13:41)
--- NOTE | 2018-08-13 08:40 | NUR ---
NURSE NOTES: Scan is not working medications verified with charge nurse
--- NOTE | 2018-08-13 11:05 | NUR ---
NURSE NOTES: Specimen obtain for rapid throat culture, sent down to lab
--- NOTE | 2018-08-13 11:17 | NUR ---
CASE MANAGEMENT: REVIEW 08/13/2018 SI: ANEMIA. ACUTE DYSPHAGIA. HEPATITIS EGD(+) SEVERE GASTRITIS T 98.1 HR 73 RR 18 B/P 119/79 SATS 98% ON RA NO LABS TODAY IS: IV AMPICILLIN Q6HRS PROTONIX PO QD NYSTATIN PO TID : MED/[facility]
--- NOTE | 2018-08-13 12:02 | NUR ---
NURSE NOTES Provided with lidocaine for comfort prior to lunch. Charge nurse verified medications
--- NOTE | 2018-08-13 12:40 | General Progress Note ---
Assessment/Plan Assessment/Plan S: still, My throat hurts O: appears comfortable. Tolerating solid diet. HYSICAL EXAMINATION: HEAD AND NECK: Atraumatic and normocephalic. CHEST: Clear to auscultation.ABDOMEN: Soft. No organomegaly. MUSCULOSKELETAL: No gross focal motor deficit.NEUROLOGIC: Awake, alert, and oriented x3. Meds: reviewed and reconciled, including Unasyn ASSESSMENT: 1. Acute dysphagia. No evidence of active acute infectious 2. Hepatitis - age indeterminate. 3. GI and DVT prophylaxes. Plan: Post EGD Once clear by GI- may followup as out patient on empirical antibiotic Subjective Allergies: Coded Allergies: CODEINE (Verified Allergy, Unknown, 08/09/18) Objective Last 24 Hour Vital Signs Date Time Temp Pulse Resp B/P (MAP) Pulse Ox O2 Delivery O2 Flow Rate FiO2 08/13/18 09:00 Room Air 08/13/18 08:00 98.3 74 18 120/78 (92) 96 08/13/18 04:00 98.1 73 18 119/79 (92) 98 08/13/18 00:00 98.3 75 20 126/86 (99) 100 08/12/18 21:00 Room Air 08/12/18 20:00 98.2 73 18 123/74 (90) 96 08/12/18 16:00 98.3 100 20 133/96 (108) 93 Intake and Output 08/12/18 08/13/18 19:00 07:00 Intake Total 1180 ml Balance 1180 ml Intake Oral 960 ml IV Total 220 ml # Voids 3 3 # Bowel Movements 3 Height (Feet): 5 Height (Inches): 5.00 Weight (Pounds): 180 Ascencion De La Cruz MD Aug 13, 2018 12:40
--- NOTE | 2018-08-13 12:45 | NUR ---
NURSE NOTES: Pain medication verified with charge nurse. Pt currently refused nyastin will re offer after meal
[2018-08-13] MEDS ORDERED: NYSTATIN100000 UN1 ORAL (13:40)
--- NOTE | 2018-08-13 15:45 | NUR ---
NURSE NOTES: Patient discharged home, with discharge packet, home prescriptions, and belongings. In stable condition. Transportation provided. Pt teaching provided related to symptoms to follow up with md, as well as medication administration. IV removed. Breathing room air with no signs of distress
--- NOTE | 2018-08-13 15:56 | Infectious Diseases Prog Note ---
Assessment/Plan Problems: (1) Pharyngitis, acute Assessment & Plan: no evidence of infectious etiology so far with negative influenza screening , monospot , and strep Group A , await CMV , mycoplasma and chlamydia , will stop unasyn empiric coverage . patient was advised to follow up with ENT for further evaluation (2) UTI (urinary tract infection) Assessment & Plan: urine culture grew contaminants , will stop unasyn (3) Hepatitis Assessment & Plan: suspect due to cocaine abuse with negative viral hepatitis and HIV , monitor LFT , follow up with GI (4) Oral thrush Assessment & Plan: continue nystatin and follow up with oral surgeon for her tounge ulcers , HIV test is negative Subjective Constitutional: Reports: no symptoms HEENT: Reports: no symptoms Respiratory: Reports: no symptoms Breasts: Reports: no symptoms Cardiovascular: Reports: no symptoms Gastrointestinal/Abdominal: Reports: no symptoms Genitourinary: Reports: no symptoms Neurologic: Reports: no symptoms Psychiatric: Reports: no symptoms Skin: Reports: no symptoms Endocrine: Reports: no symptoms Hematologic: Reports: no symptoms Musculoskeletal: Reports: no symptoms Allergies: Coded Allergies: CODEINE (Verified Allergy, Unknown, 08/09/18) Objective Vital Signs Last 24 Hour Vital Signs Date Time Temp Pulse Resp B/P (MAP) Pulse Ox O2 Delivery O2 Flow Rate FiO2 08/13/18 09:00 Room Air 08/13/18 08:00 98.3 74 18 120/78 (92) 96 08/13/18 04:00 98.1 73 18 119/79 (92) 98 08/13/18 00:00 98.3 75 20 126/86 (99) 100 08/12/18 21:00 Room Air 08/12/18 20:00 98.2 73 18 123/74 (90) 96 08/12/18 16:00 98.3 100 20 133/96 (108) 93 Height (Feet): 5 Height (Inches): 5.00 Weight (Pounds): 180 General Appearance: WD/WN, no acute distress HEENT: normocephalic, atraumatic, anicteric, mucous membranes moist, PERRL, EOMI, pharynx normal, supple, no JVD Respiratory/Chest: chest wall non-tender, lungs clear, normal breath sounds, no respiratory distress, no accessory muscle use Cardiovascular: normal peripheral pulses, normal rate, regular rhythm, no gallop/murmur, no JVD Abdomen: normal bowel sounds, soft, non tender, no organomegaly, non distended , no mass, no scars Extremities: no cyanosis, no clubbing Skin: no rash, no lesions, no ulcers Neurologic/Psychiatric: alert, oriented x 3, responsive Lymphatic: no neck adenopathy, no groin adenopathy Musculoskeletal: normal muscle bulk, no effusion Current Medications Medications (Trade) Dose Ordered Sig/Tanvi Route PRN Reason Start Time Stop Time Status Last Admin Dose Admin Acetaminophen (Tylenol) 650 mg Q4H PRN ORAL Mild Pain/Temp > 100.5 08/09/18 19:00 09/08/18 18:59 Ampicillin Sodium/ Sulbactam Sodium 3 gm/Sodium Chloride 110 ml @ 220 mls/hr Q6H IVPB 08/09/18 20:00 08/16/18 19:59 08/13/18 13:41 Ketorolac Tromethamine (Toradol 30mg) 30 mg Q6H PRN IV Severe Pain (Pain Scale 7-10) 08/09/18 19:15 08/14/18 19:14 08/13/18 12:45 Lidocaine HCl (Xylocaine Viscous) 15 ml Q4H PRN ORAL For Pain 08/12/18 12:00 09/11/18 11:59 08/13/18 11:59 Mupirocin (Bactroban Oint) 1 applic BID TOPIC 08/10/18 18:00 08/15/18 17:59 08/13/18 08:40 Nystatin (Nystatin) 5 ml THREE TIMES A DAY ORAL 08/10/18 09:00 08/17/18 08:59 08/13/18 13:41 Pantoprazole (Protonix) 40 mg DAILY ORAL 08/10/18 09:00 09/09/18 08:59 08/13/18 08:40 Carlitos Suarez M.D. Aug 13, 2018 15:56
--- NOTE | 2018-08-15 08:32 | Discharge Summary ---
Discharge Summary Discharge Summary _ DATE OF ADMISSION: 08/09/2018 DATE OF DISCHARGE: 08/13/2018] DISCHARGED BY: Dr. De La Cruz REASON FOR ADMISSION: 38 years old female presented to emergency room for evaluation by referral from primary care provider. Patient went to primary care provider office and was told that she should be checked for tongue and throat sores. Patient reported dysphagia and throat pain for 5 days. She was unable to tolerate oral diet and feeling weak. She denied fever and chills. She denied nausea and vomiting. She denied abdominal pain. She denied chest pain. Patient reported daily smoking 1 pack a day , occasional use of alcohol and street drugs. Laboratory workup revealed no leukocytosis, stable hemoglobin hematocrit. Noted elevated liver enzymes AST 2565 , ALT 2425. Alkaline phosphatase 158. Lipase stable. test negative. Urinalysis revealed evidence of UTI. CT scan of the encj revealed pharyngeal mucosal thickening involving the nasopharynx and oropharynx particularly on the left side. Findings presumed by radiologist to be probably inflammatory in nature and related to upper respiratory infection. Nonspecific nodes present within the neck bilaterally, favoring inflammatory/ infectious etiology. Sinusitis noted. Chest x-ray revealed no acute cardiopulmonary pathology. CT of the abdomen and pelvis revealed hepatosplenomegaly. Patient subsequently was admitted for further management CONSULTANTS: ID specialist GI specialist Dr. Delgado [facility]SE: Patient admitted to medical surgical floor. ID and GI consults were requested. Patient started on the IV fluids and empiric antibiotics. LFT was trending. Abdominal ultrasound revealed hepatomegaly and borderline splenomegaly. No ascites, no hydronephrosis, no biliary ductal dilatation. Swallow evaluation revealed no evidence of dysphagia. Upon clinical examination patient noted to have oral thrush and two tongue lesions. No history of endoscopy or colonoscopy. Next day patient with evidence of anemia : hemoglobin 10.6 , hematocrit 21.5. Hemoglobin and hematocrit were closely monitored with goal to keep hemoglobin above 7, remained at baseline. Patient subsequently undergone upper endoscopy with biopsy due to dysphagia and anemia and suspected Denice esophagitis. Noted moderate to severe gastritis , especially in the body of the stomach, status post biopsy. GI recommended follow-up with biopsy results and treat accordingly. At the time of dictation biopsy results are pending. No evidence of Denice esophagitis, ID specialist closely followed. Initially was placed in droplet isolation. Antibiotic provided as per ID recommendation. Infectious etiology of acute pharyngitis was rule out. Influenza screen test was negative. Monospot was negative . T hroat culture revealed noStrep group B hemolytic . Urine culture revealed mixed gram-positive organisms. Blood cultures were negative. Chlamydia, cytomegalovirus and mycoplasma pneumonia titers all negative. cytomegalovirus Antibiotics stopped. Droplet isolation discontinued. Nystatin was provided for oral thrush. HIV test nonreactive. Recommended to follow-up with oral surgeon insurance for tongue ulcers. LFT were closely monitored. Hepatitis panel was negative. Elevated LFT was likely due to cocaine use , trending down, Negative viral hepatitis and HIV testing. Monitor LFT as outpatient and follow-up with primary care provider. Prior to discharge AST from initial 2565 down to 329. ALT from initial 2425 down to 1777. DVT and GI prophylaxis provided. Pain management was addressed as needed. Patient was able to tolerate soft diet. Patient was counseled on smoking cessation and abstinence from street drugs. GI clear patient for discharge outpatient follow-up with GI specialist as per insurance. Patient was stable for discharge home. FINAL DIAGNOSES: Acute dysphagia Oral thrush Acute pharyngitis Transaminitis Hepatitis possibly due to cocaine abuse Anemia DISCHARGE MEDICATIONS: See Medication Reconciliation list. DISCHARGE INSTRUCTIONS: Patient was discharged home. Follow up with primary care provider in one week and referral to GI specialist per insurance. Recommended follow-up with oral surgeon for evaluation of tongue lesions. I have been assigned to dictate discharge summary for this account. I was not involved in the patient's management. Grecia Davila NP Aug 15, 2018 08:32
--- NOTE | 2018-08-24 14:38 | Cardiology Report ---
APPROVED REPORT EKG Measurement Heart [id number] Sinus tachycardia Possible Left atrial enlargement Borderline ECG
== END 2018-08-13 15:59 | disposition home or self-care (01) | DRG 254 ==
LOC: EMR 12:30 → 3E 16:20 → EDBEDREQ 16:43 → 4E 21:27
PROC: 0DB78ZX Excision of Stomach, Pylorus, Via Natural or Artificial Opening Endoscopic, Diagnostic (ICD-10-PCS; 2018-08-11)
PROC: 0DB68ZX Excision of Stomach, Via Natural or Artificial Opening Endoscopic, Diagnostic (ICD-10-PCS; principal; 2018-08-11 06:59)
DX: R13.10 Dysphagia, unspecified (principal); B37.0 Candidal stomatitis; K75.89 Other specified inflammatory liver diseases; J02.9 Acute pharyngitis, unspecified; K29.70 Gastritis, unspecified, without bleeding; R74.0 Nonspecific elevation of levels of transaminase and lactic acid dehydrogenase [LDH]; D64.9 Anemia, unspecified; F14.10 Cocaine abuse, uncomplicated; Z88.6 Allergy status to analgesic agent; F17.200 Nicotine dependence, unspecified, uncomplicated; N39.0 Urinary tract infection, site not specified
CPT/HCPCS: 36415; 70491; 71045; 74177; 76700; 80048; 80053; 80076; 80307; 81003; 82248; 83690; 84703; 85007; 85025; 85610; 85730; 86308; 86631; 86703; 86705; 86709; 86710; 86738; 86803; 87040; 87070; 87081; 87086; 87340; 87496; 93005; 94003; 94150; 96361; 96365; 96367; 96375; 99285; S0077